=== PATIENT | male | born 1960 | race Caucasian/White ===

== ENCOUNTER 2018-07-12 06:12 | Observation (INO) | payer BC ==
[2018-07-12 06:13] VITALS: BMI 24.3
--- NOTE | 2018-07-12 07:26 | ED PDOC ---
Arrival/HPI - General Chief Complaint: Abdominal Pain Time Seen by Provider: 07/12/18 07:06 - History of Present Illness Narrative History of Present Illness (Text): 07/12/18 07:23 57 m with no significant pmhx presents to the ED with acute epigastric pain and vomiting since 2am last night. Patient reports the pain feels like a pressure, states he felt a similiar episode approximately 2 weeks ago which resolved spontaneously. Patient states he vomiting once since this episode of pain, states the pain radiates to the RUQ and feels some right flank pain. Patient also reports he feels short of breath but denies any recent coughing, no fevers, no recent prolonged immobilization. Patient denies dysuria, no hematuria, no bloody stools, no diarrhea. PCP: Dr. kaye Time/Duration: 4-6 hours (last night) Symptom Onset: Gradual Activities at Onset: Light Context: Home Past Medical History - Past History Past History: No Previous - Infectious Disease Hx of Infectious Diseases: None - Past Medical History Past Medical History: No Previous - Psychiatric Hx Depression: No Hx Emotional Abuse: No Hx Physical Abuse: No Hx Substance Use: No - Surgical History Hx Inguinal Hernia Repair: Yes - Anesthesia Hx Anesthesia: Yes Hx Anesthesia Reactions: No Hx Malignant Hyperthermia: No - Suicidal Assessment Feels Threatened In Home Enviroment: No Family/Social History Family/Social History: No Known Family HX Smoking Status: Never Smoked Hx Alcohol Use: No Hx Substance Use: No Allergies/Home Meds Allergies/Adverse Reactions: Allergies codeine Adverse Reaction (Verified 07/12/18 06:26) RASH Home Medications: Home Meds Medication Instructions Recorded Confirmed RX: No Known Home Med 07/12/18 07/12/18 Review of Systems - Physician Review All systems were reviewed & negative as marked: Yes - Review of Systems Constitutional: absent: Fevers Respiratory: absent: Cough Gastrointestinal: Abdominal Pain, Vomiting. absent: Diarrhea Genitourinary Male: absent: Dysuria, Hematuria Physical Exam - Physical Exam Narrative Physical Exam (Text): 07/12/18 07:27 Gen: VS reviewed, alert, well developed, well nourished, nontoxic, mild distress Eye: EOMI, PERRL Neck: no JVD, supple, no adenopathy CV: regular rate, regular rhythm, no rubs,no murmur, S1, S2 Pulm: no distress, clear to auscultation, no wheeze, no rhonchi, breath sounds equal, no rales, tachypneic Abd: soft, nontender, no guarding, no rebound, no rigidity Ext: no edema Skin: good color, no rash, no cyanosis Psych: responds appropriately to questions, normal affect Neuro: oriented x3, CN2-12 intact grossly, motor intact, sensation intact 07/12/18 07:29 Vital Signs Reviewed: Yes Vital Signs Temp Pulse Resp BP Pulse Ox 07/12/18 06:21 97.6 F 77 17 170/80 H 100 hypertensive Temperature: Afebrile Pulse: Regular Medical Decision Making ED Course and Treatment: 07/12/18 07:27 57 healthy male with no known cardiac risk factors presents with acute epigastric pain, RUQ pain, chest pain and vomiting. Patient does not have any reproducible abdominal tenderness. Will initiate a cardiac and hepatobiliary workup. If US is negative, will consider other etiology of pain. 07/12/18 09:[address] Urena who states Dr. Aldridge is covering his admissions. 07/12/18 11:[address] aldridge, patient to be admitted for epigastric pain with gallstones, rule out cholecystitis. dr. aldridge has requested consults to dr. weems for surgery and dr. moran for GI. call has been placed to surgical brace maker for consult but they are currently unavailable as they are scrubbed in. call placed to dr. weems. - RAD Interpretation Narrative RAD Interpretations (Text): 07/12/18 11:20 Procedure: Ultrasound Time:07/12/2018 11:10:28 Dictator: Sherice Siddiqi MD Impression: Gallbladder wall thickening/pericholecystic edema. Gallstones. Negative sonographic Gardner's sign as assessed by the launch manager. Correlate clinically for possibility of cholecystitis. Echogenic liver may be seen in setting of hepatic parenchymal disease or fatty infiltration. Radiology Orders: 07/12/18 07:23 GALLBLADDER & PANCREAS [US] Stat Histology Tech: Radiologist - EKG Interpretation EKG Interpretation (Text): 07/12/18 06:20 nsr at 71 bpm, nml qrs, nml axis, no acute sttw abn Interpreted by ED Physician: Yes - Medication Orders Current Medication Orders: Ondansetron HCl (Zofran Inj) 4 mg IVP STAT STA Stop: 07/12/18 07:24 Disposition/Present on Arrival - Present on Arrival Any Indicators Present on Arrival: No History of DVT/PE: No History of Uncontrolled Diabetes: No Urinary Catheter: No History of Decub. Ulcer: No History Surgical Site Infection Following: None - Disposition Have Diagnosis and Disposition been Completed?: Yes Diagnosis: Gallstones Disposition: HOSPITALIZED Disposition Time: 11:32 Patient Plan: Admission Patient Problems: Current Active Problems Problem Status Onset Cholecystitis Acute Cholelithiasis Acute Condition: STABLE
[2018-07-12 07:51] LABS: PH,URINE 8.5 (4.7-8.0); URINE BILIRUBIN NEGATIVE (NEGATIVE); URINE BLOOD NEGATIVE (NEGATIVE); URINE GLUCOSE (UA) NEGATIVE (NEGATIVE); URINE LEUKOCYTE ESTERASE NEGATIVE Leu/uL (NEGATIVE); URINE PROTEIN NEGATIVE mg/dL (<30 mg/dL); URINE UROBILINOGEN 0.2 E.U./dL (<1 E.U./dL)
[2018-07-12 07:53] LABS: BASO # 0.02 K/mm3 (0.0-2.0); BASO % 0.2 % (0.0-3.0); EOS % 0.1 % (1.5-5.0); GRAN # 8.32 (1.4-6.5); GRAN % 82.5 % (50.0-68.0); HEMOGLOBIN 14.5 g/dL (14.0-18.0); LYMPH # 1.3 (1.2-3.4); LYMPH % 13.3 % (22.0-35.0); MEAN CORPUSCULAR HEMOGLOBIN 29.4 pg (25.0-35.0); MEAN CORPUSCULAR HGB CONC 33.4 g/dl (31.0-37.0); MEAN PLATELET VOLUME 9.7 fl (7.0-11.0); MONO # 0.4 (0.1-0.6); MONO % 3.9 % (1.0-6.0); RBC 4.93 10^6/uL (3.5-6.1); RED CELL DISTRIBUTION WIDTH 13.2 % (11.5-14.5); WHITE BLOOD COUNT 10.1 10^3/uL (4.5-11.0)
[2018-07-12 07:54] LABS: URINE APPEARANCE CLEAR (CLEAR); URINE COLOR LIGHT YELLOW (YELLOW)
[2018-07-12 08:51] LABS: INR 1.06; PARTIAL THROMBOPLASTIN TIME 30.5 Seconds (25.1-36.5); PROTHROMBIN TIME 12.2 SECONDS (9.4-12.5)
[2018-07-12 08:52] LABS: D DIMER < 200 ng/mlDDU (0-243)
[2018-07-12 09:12] LABS: ALB/GLOB RATIO 1.2 (1.1-1.8); ALBUMIN 4.5 g/dL (3.0-4.8); ALT/SGPT 38 U/L (7-56); AST/SGOT 35 U/L (17-59); BLOOD UREA NITROGEN 12 mg/dL (7-21); CALCIUM 9.4 mg/dL (8.4-10.5); GFR NON-AFRICAN AMERICAN > 60; HDL CHOLESTEROL 62 mg/dL (29-60); LIPASE 218 U/L (23-300)
[2018-07-12 09:23] LABS: LDL CHOLESTEROL 93 mg/dL (0-129)
[2018-07-12 09:26] LABS: TROPONIN I < 0.01 ng/mL
--- NOTE | 2018-07-12 11:14 | US ---
Date of service: 07/12/2018 HISTORY: pain, ?gallstones COMPARISON: None available. TECHNIQUE: Sonographic evaluation of the right upper quadrant of the abdomen. FINDINGS: LIVER: Measures 18.9 cm in length. Echogenic liver may be seen in setting of hepatic parenchymal disease or fatty infiltration. No focal hepatic mass identified. The main portal vein appears patent with normal directional flow. No intrahepatic bile duct dilatation. GALLBLADDER: Gallstones. Mild gallbladder wall thickening measuring approximately 5 mm in diameter/pericholecystic fluid. Negative sonographic Gardner's sign as assessed by the project systems engineer. COMMON BILE DUCT: Measures 6 mm. PANCREAS: Not well-visualized. RIGHT KIDNEY: Measures approximately 10.4 x 4.7 x 4.8 cm. No obstructing calculus or hydronephrosis identified. AORTA: Limited visualization appears grossly unremarkable. IVC: Limited visualization appears grossly unremarkable. OTHER FINDINGS: None . IMPRESSION: Gallbladder wall thickening/pericholecystic edema. Gallstones. Negative sonographic Gardner's sign as assessed by the project systems engineer. Correlate clinically for possibility of cholecystitis. Echogenic liver may be seen in setting of hepatic parenchymal disease or fatty infiltration.
[2018-07-12] MEDS ORDERED: HYDROmorphone 1 mg/ml ISec IVP PRN ×2 (11:28→15:04)
[2018-07-12] MEDS ORDERED: Dextrose 5%/0.45% NS 1,000 ML IV SCH (11:30)
[2018-07-12] MEDS ORDERED: Sodium Chloride 0.9% 1,000 ML IV SCH (11:45)
[2018-07-12] MEDS: cefTRIAXone 1 gm 1 GM/100 ML BAG IVPB SCH (11:54)
--- NOTE | 2018-07-12 14:42 | CARD ---
APPROVED REPORT Date of service: 07/12/2018 EKG Measurement Heart [id number] <Conclusion> Normal sinus rhythm Normal ECG
[2018-07-12] MEDS ORDERED: Influenza Vaccine 60 mcg/0.5 mL SYR (4YR UP) IM ONE (14:49)
[2018-07-12] MEDS ORDERED: Pneumococcal 23-Valent Vaccine IM ONE (14:49)
[2018-07-12] MEDS: metroNIDAZOLE IV 500 mg/100 ml 500 MG/100 ML BAG IVPB SCH ×2 (15:27→21:54)
--- NOTE | 2018-07-12 20:15 | CP.PCM.CON ---
<Magdi Perdomo - Last Filed: 07/12/18 20:15> History of Present Illness - History of Present Illness History of Present Illness: Surgery Consult note- Dr. Benito Reason for consult: Cholecystitis 57M w/ no significant PMHx [place] [facility] [place]/ nausea and upper abdominal pain that started this morning. His last meal was [place] take out last night. Admits to associated nausea and 1 episode of non-bloody, non-bilious vomiting. Had pain similar to this in the past about 2 weeks ago. Surgery was consulted for evaluation of possible acute cholecystitis. During encounter patient is asy mptomatic, with no abdominal pain resting comfortably. Patient states pain is worse with deep breaths. ED workup: US shows cholelithiasis 12 point ROS conducted, negative otherwise stated above PMH: Denies PSH: b/l inguinal hernia repair (about 10 years ago, does not remember), circumcision in adulthood ALL: NKDA SocialHx: Denies tobacco, etoh, recreational drug use FH: non-contributory Review of Systems - Review of Systems All systems: reviewed and no additional remarkable complaints except - Constitutional Constitutional: As Per HPI Past Patient History - Infectious Disease Hx of Infectious Diseases: None - Past Social History Smoking Status: Never Smoked - CARDIAC Hx Cardiac Disorders: No - PULMONARY Hx Respiratory Disorders: No - NEUROLOGICAL Hx Neurological Disorder: No - HEENT Hx HEENT Problems: No - RENAL Hx Chronic Kidney Disease: No - ENDOCRINE/METABOLIC Hx Endocrine Disorders: No (pt's mother was diabetic) - HEMATOLOGICAL/ONCOLOGICAL Hx Blood Disorders: No - INTEGUMENTARY Hx Dermatological Problems: No - MUSCULOSKELETAL/RHEUMATOLOGICAL Hx Musculoskeletal Disorders: No Hx Falls: No - GASTROINTESTINAL Hx Gastrointestinal Disorders: No - GENITOURINARY/GYNECOLOGICAL Hx Genitourinary Disorders: No - PSYCHIATRIC Hx Psychophysiologic Disorder: No Hx Substance Use: No - SURGICAL HISTORY Hx Surgeries: Yes (circumcision) - ANESTHESIA Hx Anesthesia: Yes Hx Anesthesia Reactions: No Hx Malignant Hyperthermia: No Meds Allergies/Adverse Reactions: Allergies Allergy/AdvReac Type Severity Reaction Status Date / Time codeine AdvReac RASH Verified 07/12/18 06:26 - Medications Medications: Current Medications Hydromorphone HCl (Dilaudid) 2 mg IVP Q4H PRN PRN Reason: Pain, moderate (4-7) Last Admin: 07/12/18 17:19 Dose: 2 mg Dextrose/Sodium Chloride (Dextrose 5%/0.45% Ns 1000 Ml) 1,000 mls @ 100 mls/hr IV .Q10H YONI Last Admin: 07/12/18 11:56 Dose: 100 mls/hr Metronidazole (Flagyl) 500 mg in 100 mls @ 100 mls/hr IVPB Q8 YONI; Protocol Last Admin: 07/12/18 15:27 Dose: 100 mls/hr Ceftriaxone Sodium (Rocephin 1 Gram Ivpb) 1 gm in 100 mls @ 100 mls/hr IVPB DAILY YONI; Protocol Last Admin: 07/12/18 11:54 Dose: 100 mls/hr Sodium Chloride (Sodium Chloride 0.9%) 1,000 mls @ 150 mls/hr IV .Q6H40M YONI Ondansetron HCl (Zofran Inj) 4 mg IVP Q6H PRN PRN Reason: Nausea/Vomiting Last Admin: 07/12/18 15:28 Dose: 4 mg Pantoprazole Sodium (Protonix Inj) 40 mg IVP DAILY [facility] Last Admin: 07/12/18 11:55 Dose: 40 mg Physical Exam - Constitutional Appears: Non-toxic, No Acute Distress - Head Exam Head Exam: ATRAUMATIC - Eye Exam Eye Exam: EOMI. absent: Scleral icterus - ENT Exam ENT Exam: Mucous Membranes Moist - Respiratory Exam Respiratory Exam: NORMAL BREATHING PATTERN. absent: Accessory Muscle Use, Respiratory Distress - Cardiovascular Exam Cardiovascular Exam: +S1, +S2. absent: Bradycardia, Tachycardia - GI/Abdominal Exam GI & Abdominal Exam: Distended (distended, states normal size abdomen), Soft, T enderness (tender to deep palpation in RUQ. Negative murphys). absent: Firm, Guarding, Hernia - Neurological Exam Neurological exam: Alert, Oriented x3 - Psychiatric Exam Psychiatric exam: Normal Affect - Skin Skin Exam: Intact, Warm Results - Vital Signs Recent Vital Signs: Last Vital Signs Temp 98.0 F 07/12/18 16:58 Pulse 76 07/12/18 16:58 Resp 20 07/12/18 16:58 BP 148/86 07/12/18 16:58 Pulse Ox 96 07/12/18 16:58 - Labs Result Diagrams: 07/12/18 07:30 07/12/18 09:00 Labs: Laboratory Results - last 24 hr 12/15/18 12/15/18 12/15/18 07:30 07:30 07:30 WBC 10.1 RBC 4.93 Hgb 14.5 Hct 43.4 MCV 88.0 MCH 29.4 MCHC 33.4 RDW 13.2 Plt Count 439 MPV 9.7 Gran % 82.5 H Lymph % (Auto) 13.3 L [place] % (Auto) 3.9 Eos % (Auto) 0.1 L Baso % (Auto) 0.2 Gran # 8.32 H Lymph # (Auto) 1.3 [place] # (Auto) 0.4 Eos # (Auto) 0.0 Baso # (Auto) 0.02 PT INR APTT D-Dimer, Quantitative Sodium Potassium Chloride Carbon Dioxide Anion Gap BUN Creatinine Est GFR ( Amer) Est GFR (Non-Af Amer) Random Glucose Calcium Total Bilirubin AST ALT Alkaline Phosphatase Troponin I Total Protein Albumin Globulin Albumin/Globulin Ratio Triglycerides Cholesterol LDL Cholesterol Direct HDL Cholesterol Lipase TSH 3rd Generation 1.02 Urine Color Light yellow Urine Appearance Clear Urine pH 8.5 Ur Specific Edison 1.020 Urine Protein Negative Urine Glucose (UA) Negative Urine Ketones 15 H Urine Blood Negative Urine Nitrate Negative Urine Bilirubin Negative Urine Urobilinogen 0.2 Ur Leukocyte Esterase Negative 07/12/18 07/12/18 08:30 09:00 WBC RBC Hgb Hct MCV MCH MCHC RDW Plt Count MPV Gran % Lymph % (Auto) [place] % (Auto) Eos % (Auto) Baso % (Auto) Gran # Lymph # (Auto) [place] # (Auto) Eos # (Auto) Baso # (Auto) PT 12.2 INR 1.06 APTT 30.5 D-Dimer, Quantitative < 200 Sodium 138 Potassium 3.7 Chloride 105 Carbon Dioxide 20 L Anion Gap 17 BUN 12 Creatinine 0.7 L Est GFR ( Amer) > 60 Est GFR (Non-Af Amer) > 60 Random Glucose 142 H Calcium 9.4 Total Bilirubin 0.5 AST 35 ALT 38 Alkaline Phosphatase 119 Troponin I < 0.01 Total Protein 8.3 Albumin 4.5 Globulin 3.8 Albumin/Globulin Ratio 1.2 Triglycerides 67 Cholesterol 173 LDL Cholesterol Direct 93 HDL Cholesterol 62 H Lipase 218 TSH 3rd Generation Urine Color Urine Appearance Urine pH Ur Specific Edison Urine Protein Urine Glucose (UA) Urine Ketones Urine Blood Urine Nitrate Urine Bilirubin Urine Urobilinogen Ur Leukocyte Esterase Assessment & Plan - Assessment and Plan (Free Text) Assessment: 57M w/ symptomatic cholelithasis vs acute cholecystitis Plan: - NPO - HIDA scan; - CLD post HIDA - pain control PRN - anti-emetic PRN - repeat AM labs - will continue to follow - discussed w/ Dr. Benito surgical attending PGY2 <Lance Benito - Last Filed: 07/13/18 11:42> Meds - Medications Medications: Current Medications Hydromorphone HCl (Dilaudid) 2 mg IVP Q4H PRN PRN Reason: Pain, moderate (4-7) Last Admin: 07/12/18 17:19 Dose: 2 mg Dextrose/Sodium Chloride (Dextrose 5%/0.45% Ns 1000 Ml) 1,000 mls @ 100 mls/hr IV .Q10H YONI Last Admin: 07/12/18 11:56 Dose: 100 mls/hr Metronidazole (Flagyl) 500 mg in 100 mls @ 100 mls/hr IVPB Q8 YONI; Protocol Last Admin: 07/13/18 06:29 Dose: 100 mls/hr Ceftriaxone Sodium (Rocephin 1 Gram Ivpb) 1 gm in 100 mls @ 100 mls/hr IVPB DAILY YONI; Protocol Last Admin: 07/13/18 10:24 Dose: 100 mls/hr Sodium Chloride (Sodium Chloride 0.9%) 1,000 mls @ 150 mls/hr IV .Q6H40M YONI Ondansetron HCl (Zofran Inj) 4 mg IVP Q6H PRN PRN Reason: Nausea/Vomiting Last Admin: 07/12/18 15:28 Dose: 4 mg Pantoprazole Sodium (Protonix Inj) 40 mg IVP DAILY YONI Last Admin: 07/13/18 10:23 Dose: 40 mg Results - Vital Signs Recent Vital Signs: Last Vital Signs Temp 98.2 F 07/13/18 08:12 Pulse 78 07/13/18 10:23 Resp 18 07/13/18 08:12 BP 159/79 H 07/13/18 10:23 Pulse Ox 99 07/13/18 08:12 - Labs Result Diagrams: 07/13/18 06:30 07/13/18 06:30 Labs: Laboratory Results - last 24 hr 07/13/18 07/13/18 06:30 06:30 WBC 12.9 H D RBC 4.65 Hgb 13.5 L Hct 41.1 L MCV 88.4 MCH 29.0 MCHC 32.8 RDW 13.6 Plt Count 391 MPV 9.4 Gran % 66.9 Lymph % (Auto) 18.9 L [place] % (Auto) 13.4 H Eos % (Auto) 0.6 L Baso % (Auto) 0.2 Gran # 8.62 H Lymph # (Auto) 2.4 [place] # (Auto) 1.7 H Eos # (Auto) 0.1 Baso # (Auto) 0.03 Sodium 139 Potassium 4.1 Chloride 103 Carbon Dioxide 27 Anion Gap 13 BUN 10 Creatinine 0.9 Est GFR ( Amer) > 60 Est GFR (Non-Af Amer) > 60 Random Glucose 97 Calcium 9.1 Total Bilirubin 0.6 AST 38 ALT 37 Alkaline Phosphatase 95 Total Protein 7.4 Albumin 3.9 Globulin 3.6 Albumin/Globulin Ratio 1.1 Assessment & Plan - Assessment and Plan (Free Text) Plan: This consult done under my direct supervision Inessa Benito MD FACS
--- NOTE | 2018-07-13 03:43 | HP ---
DATE OF EXAM: HISTORY OF PRESENT ILLNESS: The patient is a 57-year-old state he woke up this morning started right upper quadrant pain, feels nauseous, denies any fever, he stated around 10:30 has some food having chicken where he brought from outside and around 2 o'clock, he woke up having epigastric discomfort, felt nauseous, felt pressure. He had similar episode 2 weeks ago, but it resolves spontaneously. Denies any fever or chills. No history of hemoptysis. No hematemesis, history of fever or chills. PAST MEDICAL HISTORY: He has no significant past medical history. MEDICATIONS: Does not take any medication at home. ALLERGIES: HE IS ALLERGIC TO CODEINE. SOCIAL HISTORY: Denies smoking or drinking, did not drink heavy last night either. PHYSICAL EXAMINATION: GENERAL: He is awake and alert, able to communicate. VITAL SIGNS: He is afebrile. Pulse 76, respirations 20, blood pressure 148/86. LUNGS: Bilateral fair airflow. No rhonchi or crackle. HEART: S1 and S2 audible. ABDOMEN: Soft, has epigastric, right upper quadrant discomfort. No guarding or reproducible tenderness. NEUROLOGIC: He is awake, alert, oriented and communicative. LABORATORY EXAM: WBC 10.1, hemoglobin 14, hematocrit 43, and platelets 439. PT 12.2. INR 1.06. Chemistry; sodium 138, potassium 3.7, chloride 105, CO2 of 20, BUN 12, creatinine 0.7, blood sugar of 142. Urinalysis is positive for ketone. He had gallbladder ultrasound done that shows cholelithiasis, thickening of the gallbladder wall, questionable pericholecystic edema. ASSESSMENT: 1. Gastritis. 2. Acute cholecystitis. 3. History of gastritis. PLAN: The patient is currently n.p.o. We will give him IV fluids, analgesic as needed. He has been started on metronidazole, Protonix and Rocephin and give him Zofran as needed. HIDA scan has been requested, we will reevaluate in the a.m. Followup CBC and CMP in the a.m. GI consult by Dr. Singer. Surgical consult by Dr. Bolaños, has been requested. We will followup CBC and CMP in a.m. and LFT's in a.m. and make further recommendation after reevaluation in the a.m. Maricarmen Aldridge MD [facility] # [phone]
[2018-07-13] MEDS: metroNIDAZOLE IV 500 mg/100 ml 500 MG/100 ML BAG IVPB SCH ×2 (06:29→13:16)
[2018-07-13 07:07] LABS: BASO # 0.03 K/mm3 (0.0-2.0); BASO % 0.2 % (0.0-3.0); EOS # 0.1 (0.0-0.7); EOS % 0.6 % (1.5-5.0); GRAN # 8.62 (1.4-6.5); GRAN % 66.9 % (50.0-68.0); HEMOGLOBIN 13.5 g/dL (14.0-18.0); LYMPH # 2.4 (1.2-3.4); LYMPH % 18.9 % (22.0-35.0); MEAN CELL VOLUME 88.4 fl (80.0-105.0); MEAN CORPUSCULAR HGB CONC 32.8 g/dl (31.0-37.0); MEAN PLATELET VOLUME 9.4 fl (7.0-11.0); MONO # 1.7 (0.1-0.6); MONO % 13.4 % (1.0-6.0); RBC 4.65 10^6/uL (3.5-6.1); RED CELL DISTRIBUTION WIDTH 13.6 % (11.5-14.5); WHITE BLOOD COUNT 12.9 10^3/uL (4.5-11.0)
[2018-07-13 07:29] LABS: ALB/GLOB RATIO 1.1 (1.1-1.8); ALBUMIN 3.9 g/dL (3.0-4.8); ALT/SGPT 37 U/L (7-56); AST/SGOT 38 U/L (17-59); BLOOD UREA NITROGEN 10 mg/dL (7-21); CALCIUM 9.1 mg/dL (8.4-10.5); GFR NON-AFRICAN AMERICAN > 60
[2018-07-13 08:12] VITALS: RESP 18; TEMP 98.2; O2SAT 99
--- NOTE | 2018-07-13 09:01 | CP.PCM.PCO ---
Physician Communication Note - Physician Communication Note Physician Communication Note: HIDA Non-Viz/Frank Ab-OR ? Saturday
--- NOTE | 2018-07-13 09:33 | CP.PCM.PN ---
<Magdi Perdomo - Last Filed: 07/13/18 09:28> Subjective - Date & Time of Evaluation Date of Evaluation: 07/13/18 Time of Evaluation: 09:28 - Subjective Subjective: Surgery Progress note- Dr. Benito Patient seen and examined at bedside. Pain significantly improved from yesterday. HIDA performed yesterday, GB not visualized. Denies fevers, chills, chest pain, shortness of breath Objective - Vital Signs/Intake and Output Vital Signs (last 24 hours): Temp Pulse Resp BP Pulse Ox 98.2 F 73 18 147/79 99 07/13/18 08:12 07/13/18 08:12 07/13/18 08:12 07/13/18 08:12 07/13/18 08:12 Intake and Output: 07/13/18 07/13/18 06:59 18:59 Intake Total 1400 Balance 1400 - Medications Medications: Current Medications Hydromorphone HCl (Dilaudid) 2 mg IVP Q4H PRN PRN Reason: Pain, moderate (4-7) Last Admin: 07/12/18 17:19 Dose: 2 mg Dextrose/Sodium Chloride (Dextrose 5%/0.45% Ns 1000 Ml) 1,000 mls @ 100 mls/hr IV .Q10H YONI Last Admin: 07/12/18 11:56 Dose: 100 mls/hr Metronidazole (Flagyl) 500 mg in 100 mls @ 100 mls/hr IVPB Q8 YONI; Protocol Last Admin: 07/13/18 06:29 Dose: 100 mls/hr Ceftriaxone Sodium (Rocephin 1 Gram Ivpb) 1 gm in 100 mls @ 100 mls/hr IVPB DAILY YONI; Protocol Last Admin: 07/12/18 11:54 Dose: 100 mls/hr Sodium Chloride (Sodium Chloride 0.9%) 1,000 mls @ 150 mls/hr IV .Q6H40M YONI Ondansetron HCl (Zofran Inj) 4 mg IVP Q6H PRN PRN Reason: Nausea/Vomiting Last Admin: 07/12/18 15:28 Dose: 4 mg Pantoprazole Sodium (Protonix Inj) 40 mg IVP DAILY YONI Last Admin: 07/12/18 11:55 Dose: 40 mg - Labs Labs: 07/13/18 06:30 07/13/18 06:30 PT 12.2 SECONDS (9.4-12.5) 07/12/18 08:30 INR 1.06 07/12/18 08:30 APTT 30.5 Seconds (25.1-36.5) 07/12/18 08:30 - Constitutional Appears: Non-toxic, No Acute Distress - Head Exam Head Exam: ATRAUMATIC - Eye Exam Eye Exam: EOMI. absent: Scleral icterus - ENT Exam ENT Exam: Mucous Membranes Moist - Respiratory Exam Respiratory Exam: NORMAL BREATHING PATTERN. absent: Accessory Muscle Use, Respiratory Distress - Cardiovascular Exam Cardiovascular Exam: +S1, +S2. absent: Bradycardia, Tachycardia - GI/Abdominal Exam GI & Abdominal Exam: Soft. absent: Distended, Firm, Guarding, Rigid, Tenderness - Neurological Exam Neurological Exam: Alert, Awake, Oriented x3 - Psychiatric Exam Psychiatric exam: Normal Affect - Skin Skin Exam: Intact, Warm Assessment and Plan - Assessment and Plan (Free Text) Assessment: 57M w/ acute cholecystitis Plan: - pain control PRN - anti-emetic PRN - HIDA positive; will discuss potential OR for Saturday - can start on Clear Liquid Diet - will discuss surgical options and plan of care with patient - further recs per Dr. Thong Perdomo PGY2 <Lance Benito - Last Filed: 07/13/18 11:38> Objective - Vital Signs/Intake and Output Vital Signs (last 24 hours): Temp Pulse Resp BP Pulse Ox 98.2 F 78 18 159/79 H 99 07/13/18 08:12 07/13/18 10:23 07/13/18 08:12 07/13/18 10:23 07/13/18 08:12 Intake and Output: 07/13/18 07/13/18 06:59 18:59 Intake Total 1400 Balance 1400 - Medications Medications: Current Medications Hydromorphone HCl (Dilaudid) 2 mg IVP Q4H PRN PRN Reason: Pain, moderate (4-7) Last Admin: 07/12/18 17:19 Dose: 2 mg Dextrose/Sodium Chloride (Dextrose 5%/0.45% Ns 1000 Ml) 1,000 mls @ 100 mls/hr IV .Q10H YONI Last Admin: 07/12/18 11:56 Dose: 100 mls/hr Metronidazole (Flagyl) 500 mg in 100 mls @ 100 mls/hr IVPB Q8 YONI; Protocol Last Admin: 07/13/18 06:29 Dose: 100 mls/hr Ceftriaxone Sodium (Rocephin 1 Gram Ivpb) 1 gm in 100 mls @ 100 mls/hr IVPB DAILY [facility]; Protocol Last Admin: 07/13/18 10:24 Dose: 100 mls/hr Sodium Chloride (Sodium Chloride 0.9%) 1,000 mls @ 150 mls/hr IV .Q6H40M YONI Ondansetron HCl (Zofran Inj) 4 mg IVP Q6H PRN PRN Reason: Nausea/Vomiting Last Admin: 07/12/18 15:28 Dose: 4 mg Pantoprazole Sodium (Protonix Inj) 40 mg IVP DAILY [facility] Last Admin: 07/13/18 10:23 Dose: 40 mg - Labs Labs: 07/13/18 06:30 07/13/18 06:30 PT 12.2 SECONDS (9.4-12.5) 07/12/18 08:30 INR 1.06 07/12/18 08:30 APTT 30.5 Seconds (25.1-36.5) 07/12/18 08:30 Assessment and Plan - Assessment and Plan (Free Text) Plan: Plan change as HIDA is non-viz and WBC kiran to 12.9 R Thong CABEZAS FACS
[2018-07-13] MEDS: cefTRIAXone 1 gm 1 GM/100 ML BAG IVPB SCH (10:24)
[2018-07-13 10:31] VITALS: BP 159/79
--- NOTE | 2018-07-13 12:09 | CON ---
DATE OF CONSULTATION: 07/13/2018 REQUESTING PHYSICIAN: Maricarmen Aldridge MD REASON FOR CONSULTATION: I have been asked to see this 57-year-old male admitted to the hospital with epigastric and right upper quadrant pain after eating chicken. The patient had a similar episode 2 weeks ago. The abdominal pain was associated with nausea. He currently denies any abdominal pain now. Ultrasound of the abdomen revealed gallstones, mild gallbladder wall thickening, and pericholecystic fluid. Hepatobiliary scan shows nonvisualization of the gallbladder. PAST MEDICAL HISTORY: Unremarkable. FAMILY HISTORY: Noncontributory. SOCIAL HISTORY: Denies cigarette smoking or alcohol use. REVIEW OF SYSTEMS: A 14-point review of systems is notable for epigastric and right upper quadrant pain and nausea. PHYSICAL EXAMINATION: GENERAL: Well-developed male lying in bed in no acute distress. VITAL SIGNS: Temperature of 98.2, blood pressure of 147/79, heart rate of 73. HEENT: Reveal sclerae to be white. Conjunctivae pink. NECK: Supple. CHEST: Lungs are clear. HEART: Regular rate and rhythm. ABDOMEN: Soft, nontender. No mass. EXTREMITIES: No edema. LABORATORY DATA: White blood cell count 12.9, hemoglobin 13.5. Chemistries reveal normal electrolytes. Normal AST, ALT and alk phos. IMPRESSION: Acute cholecystitis. RECOMMENDATIONS: 1. The patient will need cholecystectomy. 2. Continue IV ceftriaxone. Iker Singer MD
[2018-07-13 17:20] VITALS: PULSE 80
--- NOTE | 2018-07-14 08:43 | DS ---
HISTORY OF PRESENT ILLNESS: The patient is 57 years old who was admitted yesterday with raging epigastric and right upper quadrant discomfort. He was kept n.p.o., was given IV fluid and IV antibiotic, responded very well. This morning when seen, he is comfortable, wants to go home, wants to advance his diet. The patient was evaluated by surgeon and was empirically placed for OR on Saturday for laparoscopic cholecystectomy. The patient states he feels well, he wanted to do it later on holidays. PHYSICAL EXAMINATION: GENERAL: Today, he is awake, alert, oriented, communicative. VITAL SIGNS: He is afebrile, pulse 80, respirations 18, blood pressure 159/79. LUNGS: Bilateral good airflow. No rhonchi or crackles. HEART: S1 and S2 audible. ABDOMEN: Soft and nontender. No rebound. No guarding. NEUROLOGIC: The patient is awake, alert, oriented, able to communicate. LABORATORY DATA: WBC 12.9, hemoglobin 13.5, hematocrit 41, platelet 391. Chemistry; sodium 139, potassium 4.1, chloride 103, CO2 of 27, BUN 10, creatinine 0.9, blood sugar 197. ASSESSMENT: 1. Acute cholecystitis. 2. Non-visualized HIDA scan. 3. Hypertension. 4. Cholelithiasis. PLAN: The patient was advised to be maintained on IV fluid, IV antibiotic and we will advance diet in the morning. The patient's came to visit later on after I saw the patient, she did not want stay anymore, since he is doing well, he wants to eat, he signed against medical advice. If the rib pain comes back, he will come back. Maricarmen Aldridge MD
--- NOTE | 2018-07-14 10:09 | NM ---
Date of service: 07/12/2018 PROCEDURE: Nuclear Medicine Hepatobiliary Scan HISTORY: eval cystic duct COMPARISON: Limited abdomen ultrasound 07/12/2018. TECHNIQUE: mCi of technetium 99m Mebrofenin was administered intravenously. Planar images of the abdomen were obtained at 5 min intervals to 60 mins. Delayed images were also obtained. FINDINGS: LIVER: Timely and homogenous uptake. COMMON BILE DUCT: identified at 10-15 mins. GALLBLADDER: Not identified up to 4 hr post isotope administration. SMALL BOWEL: Identified at 15 mins. IMPRESSION: 1. The pattern suggests obstruction of the cystic duct and accordingly therefore, cholecystitis. 2. No nuclear evidence of common bile duct obstruction.
== END 2018-07-13 16:00 | disposition left against medical advice (07) ==
LOC: ED 06:12 → ERH 11:33 → INTOOBSV 11:33 → ERH 12:06 → 3RSO 13:48
PROVIDERS: ADMIT Internal Medicine; ATTEND Internal Medicine
DX: K80.00 Calculus of gallbladder with acute cholecystitis without obstruction (principal); I10 Essential (primary) hypertension; K29.70 Gastritis, unspecified, without bleeding; Z83.3 Family history of diabetes mellitus; Z88.5 Allergy status to narcotic agent
CPT/HCPCS: 36415; 76705; 78227; 80053; 80061; 81003; 83690; 84443; 84484; 85025; 85378; 85610; 85730; 93005; 96361; 96365; 96366; 96367; 96375; 96376; 99285; A9537; C9113; G0378; J0696; J1170; J2405; J7042

== ENCOUNTER 2018-07-13 23:12 | Inpatient (IN) | payer BC ==
[2018-07-13 23:12] VITALS: BMI 24.3
--- NOTE | 2018-07-13 23:49 | ED PDOC ---
Arrival/HPI - General Time Seen by Provider: 07/13/18 23:30 Historian: Patient - History of Present Illness Narrative History of Present Illness (Text): 07/13/18 23:49 Gaurav Santiago is a 57 year old male who presents to the Emergency department complaining of upper abdominal pain and nausea. Patient was seen in the Emergency department on 07/12/2018 for similar complaints and admitted to the hospital for cholecystitis/cholelithasis. Patient was scheduled for surgery this week however he signed out against medical advice earlier today. Patient states upper abdominal pain returned while at home and patient returned to the hospital for readmission. Patient denies any abdominal pain currently but does complain of some nausea. Patient denies any fever, chills, chest pain, shortness of breath, diarrhea, urinary symptoms, back pain, neck pain, headache, dizziness, or any other complaints. PMD: Dr. Jiménez Symptom Onset: Gradual Symptom Course: Unchanged Activities at Onset: Light Context: Home Past Medical History - Provider Review Nursing Documentation Reviewed: Yes - Past History Past History: No Previous - Infectious Disease Hx of Infectious Diseases: None - Past Medical History Past Medical History: No Previous - Cardiac Hx Cardiac Disorders: No - Pulmonary Hx Respiratory Disorders: No - Neurological Hx Neurological Disorder: No - HEENT Hx HEENT Disorder: No - Renal Hx Renal Disorder: No - Endocrine/Metabolic Hx Endocrine Disorders: No (pt's mother was diabetic) - Hematological/Oncological Hx Blood Disorders: No - Integumentary Hx Dermatological Disorder: No - Musculoskeletal/Rheumatological Hx Musculoskeletal Disorders: No Hx Falls: No - Gastrointestinal Hx Gastrointestinal Disorders: No - Genitourinary/Gynecological Hx Genitourinary Disorders: No - Psychiatric Hx Psychophysiologic Disorder: No Hx Substance Use: No - Surgical History Hx Inguinal Hernia Repair: Yes (b/l done at the same time about 10 yrs ago) - Anesthesia Hx Anesthesia: Yes Hx Anesthesia Reactions: No Hx Malignant Hyperthermia: No - Suicidal Assessment Feels Threatened In Home Enviroment: No Family/Social History - Physician Review Nursing Documentation Reviewed: Yes Family/Social History: Unknown Family HX Smoking Status: Never Smoked Hx Alcohol Use: No Hx Substance Use: No Allergies/Home Meds Allergies/Adverse Reactions: Allergies codeine Adverse Reaction (Verified 07/12/18 06:26) RASH Home Medications: Home Meds Medication Instructions Recorded Confirmed No Known Home Med 07/12/18 07/12/18 Review of Systems - Physician Review All systems were reviewed & negative as marked: Yes - Review of Systems Constitutional: Normal. absent: Fevers Eyes: Normal ENT: Normal Respiratory: Normal. absent: SOB, Cough Cardiovascular: Normal. absent: Chest Pain Gastrointestinal: Abdominal Pain, Nausea. absent: Diarrhea Genitourinary Male: Normal. absent: Dysuria, Frequency, Hematuria, Urinary Output Changes Musculoskeletal: Normal. absent: Back Pain, Neck Pain Skin: Normal. absent: Rash Neurological: Normal. absent: Headache, Dizziness Endocrine: Normal Hemo/Lymphatic: Normal Psychiatric: Normal Physical Exam Vital Signs Reviewed: Yes Vital Signs Temp Pulse Resp BP Pulse Ox 07/13/18 23:44 98.4 F 69 20 136/77 99 Temperature: Afebrile Blood Pressure: Normal Pulse: Regular Respiratory Rate: Normal Appearance: Positive for: Well-Appearing, Non-Toxic, Comfortable Pain Distress: None Mental Status: Positive for: Alert and Oriented X 3 - Systems Exam Head: Present: Atraumatic, Normocephalic Pupils: Present: PERRL Extroacular Muscles: Present: EOMI Conjunctiva: Present: Normal Mouth: Present: Moist Mucous Membranes Neck: Present: Normal Range of Motion Respiratory/Chest: Present: Clear to Auscultation, Good Air Exchange. No: Respiratory Distress, Accessory Muscle Use Cardiovascular: Present: Regular Rate and Rhythm, Normal S1, S2. No: Murmurs Abdomen: No: Tenderness, Distention, Peritoneal Signs Back: Present: Normal Inspection Upper Extremity: Present: Normal Inspection. No: Cyanosis, Edema Lower Extremity: Present: Normal Inspection. No: Edema Neurological: Present: GCS=15, CN II-XII Intact, Speech Normal Skin: Present: Warm, Dry, Normal Color. No: Rashes Psychiatric: Present: Alert, Oriented x 3, Normal Insight, Normal Concentration Medical Decision Making ED Course and Treatment: 07/13/18 23:49 Impression: 57 year old male complaining of upper abdominal pain and vomiting. Plan: -- Flagyl -- Rocephine -- IV fluids -- Reassess and disposition Prior Visits: Notes and results from previous visits were reviewed. On 07/12/2018, pt was seen in the Emergency department for RUQ pain and admitted to the hospital for cholecystitis/cholelithiasis. Pt signed out against AMA earlier today. Progress Notes: 07/13/18 23:[address] Urena, who is aware and agrees with plan. Accepts pt in to his service. Requests Dr. Benito and Dr. Singer on consult. Pt will be admitted to [facility] for cholecystitis and cholelithiasis. - Scribe Statement The provider has reviewed the documentation as recorded by the Scribe Cheri Croft Provider Scribe Attestation: All medical record entries made by the Scribe were at my direction and personally dictated by me. I have reviewed the chart and agree that the record accurately reflects my personal performance of the history, physical exam, medical decision making, and the department course for this patient. I have also personally directed, reviewed, and agree with the discharge instructions and disposition. Disposition/Present on Arrival - Present on Arrival Any Indicators Present on Arrival: No History of DVT/PE: No History of Uncontrolled Diabetes: No Urinary Catheter: No History Surgical Site Infection Following: None - Disposition Have Diagnosis and Disposition been Completed?: Yes Diagnosis: Cholelithiasis, Cholecystitis Disposition: HOSPITALIZED Disposition Time: 00:09 Patient Plan: Admission Condition: STABLE
[2018-07-14] MEDS ORDERED: Sodium Chloride 0.9% 1,000 ML IV STA (00:06)
[2018-07-14] MEDS: metroNIDAZOLE IV 500 mg/100 ml 500 MG/100 ML BAG IVPB SCH ×4 (00:33→22:30)
--- NOTE | 2018-07-14 06:55 | CP.PCM.CON ---
<Magdi Perdomo - Last Filed: 07/14/18 07:56> History of Present Illness - History of Present Illness History of Present Illness: Surgery Consult note- Dr. Benito Reason for consult: Cholecystitis 57M w/ no significant PMHx presents to [facility] ED with repeat RUQ pain after leaving AMA earlier yesterday. Initially presented w/ nausea and upper abdominal pain that started Saturday Morning. His last meal was [place] take out last night. Admits to associated nausea and 1 episode of non-bloody, non-bilious vomiting. Had pain similar to this in the past about 2 weeks ago. Surgery was consulted for evaluation of possible acute cholecystitis. During encounter patient is asymptomatic, with no abdominal pain resting comfortably. Patient states pain is worse with deep breaths. Initial ED workup: US shows cholelithiasis 12 point ROS conducted, negative otherwise stated above PMH: Denies PSH: b/l inguinal hernia repair (about 10 years ago, does not remember), circumcision in adulthood ALL: NKDA SocialHx: Denies tobacco, etoh, recreational drug use FH: non-contributory Review of Systems - Review of Systems All systems: reviewed and no additional remarkable complaints except - Constitutional Constitutional: As Per HPI Past Patient History - Infectious Disease Hx of Infectious Diseases: None - Past Social History Smoking Status: Never Smoked - CARDIAC Hx Cardiac Disorders: No - PULMONARY Hx Respiratory Disorders: No - NEUROLOGICAL Hx Neurological Disorder: No - HEENT Hx HEENT Problems: No - RENAL Hx Chronic Kidney Disease: No - ENDOCRINE/METABOLIC Hx Endocrine Disorders: No (pt's mother was diabetic) - HEMATOLOGICAL/ONCOLOGICAL Hx Blood Disorders: No - INTEGUMENTARY Hx Dermatological Problems: No - MUSCULOSKELETAL/RHEUMATOLOGICAL Hx Falls: No - GASTROINTESTINAL Hx Gastrointestinal Disorders: No - GENITOURINARY/GYNECOLOGICAL Hx Genitourinary Disorders: No - PSYCHIATRIC Hx Substance Use: No - SURGICAL HISTORY Hx Surgeries: Yes (B/L HERNIA,) - ANESTHESIA Hx Anesthesia: Yes Hx Anesthesia Reactions: No Hx Malignant Hyperthermia: No Meds Allergies/Adverse Reactions: Allergies Allergy/AdvReac Type Severity Reaction Status Date / Time codeine AdvReac RASH Verified 07/12/18 06:26 - Medications Medications: Current Medications Metronidazole (Flagyl) 500 mg in 100 mls @ 100 mls/hr IVPB Q8 YONI; Protocol Last Admin: 07/14/18 05:32 Dose: 100 mls/hr Ceftriaxone Sodium (Rocephin 1 Gram Ivpb) 1 gm in 100 mls @ 100 mls/hr IV DAILY YONI; Protocol Sodium Chloride (Sodium Chloride 0.9%) 1,000 mls @ 100 mls/hr IV .Q10H STA Stop: 07/14/18 10:05 Last Admin: 07/14/18 00:33 Dose: 100 mls/hr Physical Exam - Constitutional Appears: Non-toxic, No Acute Distress - Head Exam Head Exam: ATRAUMATIC - Eye Exam Eye Exam: EOMI. absent: Scleral icterus - ENT Exam ENT Exam: Mucous Membranes Moist - Respiratory Exam Respiratory Exam: NORMAL BREATHING PATTERN. absent: Accessory Muscle Use, Respiratory Distress - Cardiovascular Exam Cardiovascular Exam: +S1, +S2. absent: Bradycardia, Tachycardia - GI/Abdominal Exam GI & Abdominal Exam: Distended (normal distention), Soft, Tenderness. absent: Firm, Guarding, Rebound, Rigid Additional comments: Tenderness in RUQ to deep palpation - Extremities Exam Extremities exam: Positive for: normal inspection. Negative for: calf tenderness - Neurological Exam Neurological exam: Alert, Oriented x3 - Psychiatric Exam Psychiatric exam: Normal Affect - Skin Skin Exam: Intact, Warm Results - Vital Signs Recent Vital Signs: Last Vital Signs Temp 98.4 F 07/13/18 23:44 Pulse 69 07/13/18 23:44 Resp 18 07/14/18 01:40 BP 136/77 07/13/18 23:44 Pulse Ox 99 07/13/18 23:44 - Labs Result Diagrams: 07/14/18 07:30 Assessment & Plan - Assessment and Plan (Free Text) Assessment: 57M w/ Acute Cholecystitis Plan: - NPO - IVF - Pain control PRN - anti-emetic PRN - serial abd exams - plan for surgery during this hospital - further recs per Dr. Thong Perdomo PGY2 <Lance Benito - Last Filed: 07/14/18 11:24> Meds - Medications Medications: Current Medications Metronidazole (Flagyl) 500 mg in 100 mls @ 100 mls/hr IVPB Q8 YONI; Protocol Last Admin: 07/14/18 05:32 Dose: 100 mls/hr Ceftriaxone Sodium (Rocephin 1 Gram Ivpb) 1 gm in 100 mls @ 100 mls/hr IV DAILY YONI; Protocol Last Admin: 07/14/18 09:37 Dose: 100 mls/hr Lactated Ringer's (Lactated Ringer's) 1,000 mls @ 120 mls/hr IV .Q8H20M YONI Last Admin: 07/14/18 09:37 Dose: 120 mls/hr Morphine Sulfate (Morphine) 4 mg IVP Q4H PRN PRN Reason: Pain, moderate (4-7) Ondansetron HCl (Zofran Inj) 4 mg IVP Q4H PRN PRN Reason: Nausea/Vomiting Results - Vital Signs Recent Vital Signs: Last Vital Signs Temp 98.4 F 07/13/18 23:44 Pulse 69 07/13/18 23:44 Resp 18 07/14/18 01:40 BP 136/77 07/13/18 23:44 Pulse Ox 99 07/13/18 23:44 - Labs Result Diagrams: 07/14/18 07:30 07/14/18 07:30 Labs: Laboratory Results - last 24 hr 07/14/18 07/14/18 07/14/18 07:30 07:30 08:30 WBC 8.8 D RBC 4.97 Hgb 14.6 Hct 43.7 MCV 87.9 MCH 29.4 MCHC 33.4 RDW 13.5 Plt Count 383 MPV 9.1 Gran % 61.4 Lymph % (Auto) 24.2 Bollinger % (Auto) 13.2 H Eos % (Auto) 0.9 L Baso % (Auto) 0.3 Gran # 5.42 Lymph # (Auto) 2.1 Bollinger # (Auto) 1.2 H Eos # (Auto) 0.1 Baso # (Auto) 0.03 Sodium 139 Potassium 3.9 Chloride 104 Carbon Dioxide 28 Anion Gap 11 BUN 12 Creatinine 0.9 Est GFR ( Amer) > 60 Est GFR (Non-Af Amer) > 60 Random Glucose 94 Calcium 9.1 Phosphorus 3.3 Magnesium 2.1 Total Bilirubin 2.8 H AST 421 H D ALT 327 H Alkaline Phosphatase 200 H D Total Protein 7.7 Albumin 4.0 Globulin 3.7 Albumin/Globulin Ratio 1.1 Blood Type O POSITIVE Blood Type Confirm Antibody Screen Negative BBK History Checked No verified bt 07/14/18 09:30 WBC RBC Hgb Hct MCV MCH MCHC RDW Plt Count MPV Gran % Lymph % (Auto) Bollinger % (Auto) Eos % (Auto) Baso % (Auto) Gran # Lymph # (Auto) Bollinger # (Auto) Eos # (Auto) Baso # (Auto) Sodium Potassium Chloride Carbon Dioxide Anion Gap BUN Creatinine Est GFR ( Amer) Est GFR (Non-Af Amer) Random Glucose Calcium Phosphorus Magnesium Total Bilirubin AST ALT Alkaline Phosphatase Total Protein Albumin Globulin Albumin/Globulin Ratio Blood Type Blood Type Confirm O POSITIVE Antibody Screen BBK History Checked Assessment & Plan - Assessment and Plan (Free Text) Plan: Dx Probable NEW Common duct stone(ate last night despite liquids only instruction) MRCP ordered--?ERCP before surgery This consult done under my direct supervision Inessa Benito MD FACS
[2018-07-14 07:43] LABS: BASO # 0.03 K/mm3 (0.0-2.0); BASO % 0.3 % (0.0-3.0); EOS # 0.1 (0.0-0.7); EOS % 0.9 % (1.5-5.0); GRAN # 5.42 (1.4-6.5); GRAN % 61.4 % (50.0-68.0); HEMOGLOBIN 14.6 g/dL (14.0-18.0); LYMPH # 2.1 (1.2-3.4); LYMPH % 24.2 % (22.0-35.0); MEAN CELL VOLUME 87.9 fl (80.0-105.0); MEAN CORPUSCULAR HEMOGLOBIN 29.4 pg (25.0-35.0); MEAN CORPUSCULAR HGB CONC 33.4 g/dl (31.0-37.0); MEAN PLATELET VOLUME 9.1 fl (7.0-11.0); MONO # 1.2 (0.1-0.6); MONO % 13.2 % (1.0-6.0); RBC 4.97 10^6/uL (3.5-6.1); RED CELL DISTRIBUTION WIDTH 13.5 % (11.5-14.5); WHITE BLOOD COUNT 8.8 10^3/uL (4.5-11.0)
[2018-07-14] MEDS ORDERED: Morphine 4 mg/ml ISec IVP PRN (07:55)
[2018-07-14] MEDS ORDERED: Lactated Ringer's 1,000 ML IV SCH ×3 (08:00→14:54)
[2018-07-14 08:06] LABS: ALB/GLOB RATIO 1.1 (1.1-1.8); ALT/SGPT 327 U/L (7-56); AST/SGOT 421 U/L (17-59); BLOOD UREA NITROGEN 12 mg/dL (7-21); CALCIUM 9.1 mg/dL (8.4-10.5); GFR NON-AFRICAN AMERICAN > 60
--- NOTE | 2018-07-14 09:24 | CP.PCM.PCO ---
Physician Communication Note - Physician Communication Note Physician Communication Note: Now CD stone:Needs MRCP--?ERCP before surgery
[2018-07-14] MEDS: cefTRIAXone 1 gm 1 GM/100 ML BAG IV SCH (09:37)
--- NOTE | 2018-07-14 13:13 | CP.PCM.CON ---
<Weston Munoz - Last Filed: 07/14/18 15:27> History of Present Illness - History of Present Illness History of Present Illness: PGY6 GI Fellow Consult Note Patient is a 57yo male without significant past medical history who presented to the ED with abdominal pain. He was recently admitted and diagnosed with cholelithiasis/cholecystitis this past week and was scheduled for cholecystectomy but signed out against medical advice prior to having this performed. He returns now with recurrent RUQ and epigastric abdominal pain, nausea and vomiting. On lab work, LFTs are elevated in a mixed pattern and have worsened compared to prior blood work. Currently, the patient is comfortable and denies any significant pain, nausea or vomiting. He has been maintained NPO. Our service has been consulted for EUS/ERCP evaluation prior to cholecystectomy. 12 system ROS performed and negative except where stated PMHx: Discussed with patient and he denies PSHx: Inguinal hernia repair FHx: Discussed with patient and he denies significant family history Social: Denies tobacco, EtOH or illicit drug use Endo: No prior endoscopic evaluations Past Patient History - Infectious Disease Hx of Infectious Diseases: None - Past Social History Smoking Status: Never Smoked - CARDIAC Hx Cardiac Disorders: No - PULMONARY Hx Respiratory Disorders: No - NEUROLOGICAL Hx Neurological Disorder: No - HEENT Hx HEENT Problems: No - RENAL Hx Chronic Kidney Disease: No - ENDOCRINE/METABOLIC Hx Endocrine Disorders: No (pt's mother was diabetic) - HEMATOLOGICAL/ONCOLOGICAL Hx Blood Disorders: No - INTEGUMENTARY Hx Dermatological Problems: No - MUSCULOSKELETAL/RHEUMATOLOGICAL Hx Falls: No - GASTROINTESTINAL Hx Gastrointestinal Disorders: No - GENITOURINARY/GYNECOLOGICAL Hx Genitourinary Disorders: No - PSYCHIATRIC Hx Substance Use: No - SURGICAL HISTORY Hx Surgeries: Yes (B/L HERNIA,) - ANESTHESIA Hx Anesthesia: Yes Hx Anesthesia Reactions: No Hx Malignant Hyperthermia: No Meds Allergies/Adverse Reactions: Allergies Allergy/AdvReac Type Severity Reaction Status Date / Time codeine AdvReac RASH Verified 07/12/18 06:26 - Medications Medications: Current Medications Metronidazole (Flagyl) 500 mg in 100 mls @ 100 mls/hr IVPB Q8 YONI; Protocol Last Admin: 07/14/18 05:32 Dose: 100 mls/hr Ceftriaxone Sodium (Rocephin 1 Gram Ivpb) 1 gm in 100 mls @ 100 mls/hr IV DAILY YONI; Protocol Last Admin: 07/14/18 09:37 Dose: 100 mls/hr Lactated Ringer's (Lactated Ringer's) 1,000 mls @ 120 mls/hr IV .Q8H20M YONI Last Admin: 07/14/18 09:37 Dose: 120 mls/hr Morphine Sulfate (Morphine) 4 mg IVP Q4H PRN PRN Reason: Pain, moderate (4-7) Ondansetron HCl (Zofran Inj) 4 mg IVP Q4H PRN PRN Reason: Nausea/Vomiting Physical Exam - Constitutional Appears: Non-toxic, No Acute Distress - Eye Exam Eye Exam: EOMI, PERRL Additional comments: left eye with subconjunctival hemorrhage at the medial portion - ENT Exam ENT Exam: Mucous Membranes Moist - Respiratory Exam Respiratory Exam: Clear to Auscultation Bilateral. absent: Rales, Rhonchi, Wheezes - Cardiovascular Exam Cardiovascular Exam: RRR, +S1, +S2 - GI/Abdominal Exam GI & Abdominal Exam: Normal Bowel Sounds, Soft. absent: Distended, Firm, Guarding, Organomegaly, Rigid, Tenderness - Extremities Exam Extremities exam: Positive for: normal inspection. Negative for: pedal edema - Neurological Exam Neurological exam: Alert, Oriented x3 - Psychiatric Exam Psychiatric exam: Normal Affect, Normal Mood - Skin Skin Exam: Dry, Warm Results - Vital Signs Recent Vital Signs: Last Vital Signs Temp 98.4 F 07/13/18 23:44 Pulse 69 07/13/18 23:44 Resp 18 07/14/18 01:40 BP 136/77 07/13/18 23:44 Pulse Ox 99 07/13/18 23:44 - Labs Result Diagrams: 07/14/18 07:30 07/14/18 07:30 Labs: Laboratory Results - last 24 hr 07/14/18 07/14/18 07/14/18 07:30 07:30 08:30 WBC 8.8 D RBC 4.97 Hgb 14.6 Hct 43.7 MCV 87.9 MCH 29.4 MCHC 33.4 RDW 13.5 Plt Count 383 MPV 9.1 Gran % 61.4 Lymph % (Auto) 24.2 Cobb % (Auto) 13.2 H Eos % (Auto) 0.9 L Baso % (Auto) 0.3 Gran # 5.42 Lymph # (Auto) 2.1 Cobb # (Auto) 1.2 H Eos # (Auto) 0.1 Baso # (Auto) 0.03 Sodium 139 Potassium 3.9 Chloride 104 Carbon Dioxide 28 Anion Gap 11 BUN 12 Creatinine 0.9 Est GFR ( Amer) > 60 Est GFR (Non-Af Amer) > 60 Random Glucose 94 Calcium 9.1 Phosphorus 3.3 Magnesium 2.1 Total Bilirubin 2.8 H AST 421 H D ALT 327 H Alkaline Phosphatase 200 H D Total Protein 7.7 Albumin 4.0 Globulin 3.7 Albumin/Globulin Ratio 1.1 Blood Type O POSITIVE Blood Type Confirm Antibody Screen Negative BBK History Checked No verified bt 07/14/18 09:30 WBC RBC Hgb Hct MCV MCH MCHC RDW Plt Count MPV Gran % Lymph % (Auto) Cobb % (Auto) Eos % (Auto) Baso % (Auto) Gran # Lymph # (Auto) Cobb # (Auto) Eos # (Auto) Baso # (Auto) Sodium Potassium Chloride Carbon Dioxide Anion Gap BUN Creatinine Est GFR ( Amer) Est GFR (Non-Af Amer) Random Glucose Calcium Phosphorus Magnesium Total Bilirubin AST ALT Alkaline Phosphatase Total Protein Albumin Globulin Albumin/Globulin Ratio Blood Type Blood Type Confirm O POSITIVE Antibody Screen BBK History Checked Assessment & Plan - Assessment and Plan (Free Text) Assessment: Patient is a 57yo male without significant past medical history who presented to the ED with abdominal pain -Cholelithiasis -Cholecystitis -Abnormal LFTs - R/O Choledocolithiasis Plan: -MRCP pending official read - no obvious biliary tree stone noted on my evaluation -LFT elevation in mixed picture suggestive of recent or ongoing biliary obstruction given clinical history -Will perform EUS +/- ERCP today -Cholecystectomy per surgical service -Maintain NPO - Date & Time Date: 07/14/18 Time: 12:45 <Patrick Ford V - Last Filed: 07/14/18 23:57> Meds - Medications Medications: Current Medications Hydromorphone HCl (Dilaudid) 0.5 mg IVP Q15M PRN PRN Reason: Pain, Moderate/Severe (4-10) Metronidazole (Flagyl) 500 mg in 100 mls @ 100 mls/hr IVPB Q8 YONI; Protocol Last Admin: 07/14/18 22:30 Dose: 100 mls/hr Ceftriaxone Sodium (Rocephin 1 Gram Ivpb) 1 gm in 100 mls @ 100 mls/hr IV DAILY YONI; Protocol Last Admin: 07/14/18 09:37 Dose: 100 mls/hr Lactated Ringer's (Lactated Ringer's) 1,000 mls @ 125 mls/hr IV .Q8H YONI Last Admin: 07/14/18 23:42 Dose: Not Given Morphine Sulfate (Morphine) 4 mg IVP Q4H PRN PRN Reason: Pain, moderate (4-7) Ondansetron HCl (Zofran Inj) 4 mg IVP Q4H PRN PRN Reason: Nausea/Vomiting Results - Vital Signs Recent Vital Signs: Last Vital Signs Temp 98.8 F 07/14/18 20:30 Pulse 74 07/14/18 20:30 Resp 18 07/14/18 20:30 BP 140/71 07/14/18 20:30 Pulse Ox 99 07/14/18 20:30 - Labs Result Diagrams: 07/14/18 07:30 07/14/18 07:30 Labs: Laboratory Results - last 24 hr 07/14/18 07/14/18 07/14/18 07:30 07:30 08:30 WBC 8.8 D RBC 4.97 Hgb 14.6 Hct 43.7 MCV 87.9 MCH 29.4 MCHC 33.4 RDW 13.5 Plt Count 383 MPV 9.1 Gran % 61.4 Lymph % (Auto) 24.2 Cobb % (Auto) 13.2 H Eos % (Auto) 0.9 L Baso % (Auto) 0.3 Gran # 5.42 Lymph # (Auto) 2.1 Cobb # (Auto) 1.2 H Eos # (Auto) 0.1 Baso # (Auto) 0.03 Sodium 139 Potassium 3.9 Chloride 104 Carbon Dioxide 28 Anion Gap 11 BUN 12 Creatinine 0.9 Est GFR ( Amer) > 60 Est GFR (Non-Af Amer) > 60 Random Glucose 94 Calcium 9.1 Phosphorus 3.3 Magnesium 2.1 Total Bilirubin 2.8 H AST 421 H D ALT 327 H Alkaline Phosphatase 200 H D Total Protein 7.7 Albumin 4.0 Globulin 3.7 Albumin/Globulin Ratio 1.1 Blood Type O POSITIVE Blood Type Confirm Antibody Screen Negative BBK History Checked No verified bt 07/14/18 09:30 WBC RBC Hgb Hct MCV MCH MCHC RDW Plt Count MPV Gran % Lymph % (Auto) Cobb % (Auto) Eos % (Auto) Baso % (Auto) Gran # Lymph # (Auto) Cobb # (Auto) Eos # (Auto) Baso # (Auto) Sodium Potassium Chloride Carbon Dioxide Anion Gap BUN Creatinine Est GFR ( Amer) Est GFR (Non-Af Amer) Random Glucose Calcium Phosphorus Magnesium Total Bilirubin AST ALT Alkaline Phosphatase Total Protein Albumin Globulin Albumin/Globulin Ratio Blood Type Blood Type Confirm O POSITIVE Antibody Screen BBK History Checked Attending/Attestation - Attestation I have personally seen and examined this patient.: Yes I have fully participated in the care of the patient.: Yes I have reviewed all pertinent clinical information: Yes Notes (Text): p 07/14/18 23:57
[2018-07-14] MEDS ORDERED: Iohexol 240 (50 ml) ONE (13:36)
[2018-07-14] MEDS ORDERED: Indomethacin 50 MG Suppository PR ONE ×2 (13:37→18:06)
--- NOTE | 2018-07-14 13:37 | CP.PCM.PCO ---
Physician Communication Note - Physician Communication Note Physician Communication Note: ERCP Today/ERCP Today-OR Saturday?
--- NOTE | 2018-07-14 14:49 | MRI ---
Date of service: 07/14/2018 PROCEDURE: Magnetic Resonance Cholangiopancreatography HISTORY: COMPARISON: None available. TECHNIQUE: Multiplanar, multisequence MR images of the abdomen were obtained, including heavily T2 weighted MRCP images of the biliary system. Rotating maximum intensity projection images of the biliary system were generated. FINDINGS: MRCP: The common bile duct is of a normal caliber. No evidence of choledocholithiasis. No intrahepatic biliary ductal dilatation. LIVER: Unremarkable. GALLBLADDER: Multiple gallstones with gallbladder wall thickening or pericholecystic fluid. Findings suspicious for acute cholecystitis. No evidence of biliary dilatation or choledocholithiasis. SPLEEN: Unremarkable. PANCREAS: Unremarkable. ADRENALS: Unremarkable. KIDNEYS: Unremarkable. AORTA: No aneurysm. ASCITES: None. OTHER FINDINGS: None. IMPRESSION: Multiple gallstones with gallbladder wall thickening or pericholecystic fluid. Findings suspicious for acute cholecystitis. No evidence of biliary dilatation or choledocholithiasis.
[2018-07-14] MEDS ORDERED: Propofol 10 mg/ml Inj (20 ML) ONE (17:12)
[2018-07-14] MEDS ORDERED: Midazolam 2 MG/2 ML VIAL ONE (17:12)
--- NOTE | 2018-07-14 17:51 | CON ---
DATE: 07/14/2018 GASTROENTEROLOGY CONSULTATION REQUESTING PHYSICIAN: Dr. Urena. REASON FOR CONSULTATION: I have been asked to see this 57-year-old male, who was admitted to the hospital 2 days ago for epigastric and right upper quadrant pain. Workup in the hospital revealed gallstones, gallbladder wall thickening, and mild pericholecystic fluid. HIDA scan was positive for cystic duct obstruction. The patient signed out against medical advice yesterday afternoon. He subsequently developed abdominal pain associated with nausea and vomiting after eating [place] food. Routine blood work now shows elevated liver enzymes. His liver enzymes on previous admission were normal. MRCP was performed and showed normal CBD without any definite evidence of common bile duct stone. PAST MEDICAL HISTORY: Notable for gallstones. PAST SURGICAL HISTORY: Notable for bilateral inguinal hernia repair. SOCIAL HISTORY: Denies cigarette smoking or alcohol use. FAMILY HISTORY: Noncontributory. REVIEW OF SYSTEMS: Fourteen-point review of systems is notable for epigastric pain and nausea, vomiting. PHYSICAL EXAMINATION: GENERAL: Well-developed male, lying in bed, in no acute distress. VITAL SIGNS: Reveal a temperature of 98.4, blood pressure 136/77, heart rate of 69. HEENT: Reveal sclerae to be white. Conjunctivae pink. NECK: Supple. CHEST: Lungs are clear. HEART: Exam reveals a regular rate and rhythm. ABDOMEN: Soft, mild epigastric tenderness. No rebound or guarding. EXTREMITIES: Show no edema. LABORATORY DATA: Revealed a white blood cell count of 8.8, hemoglobin 14.6, platelet count 383,000. Chemistries reveal normal electrolytes. Total bilirubin 2.8, AST 421, ALT 327, alkaline phosphatase of 200. IMPRESSION: This is a 57-year-old male with acute cholecystitis, who signed out against medical advice, did not follow a diet. Recommendations for clear liquid diet and a [place] food, and again developed abdominal pain. He now has elevated liver enzymes, one must rule out a common bile duct stone. RECOMMENDATIONS: I have spoken to Dr. Ford about doing an EUS, possible ERCP to rule out common bile duct stone. Iker Singer MD [facility] # [id number]
[2018-07-14] MEDS ORDERED: ePHEDrine 50 mg/ml Inj ONE (18:04)
[2018-07-14] MEDS ORDERED: Phenylephrine 10 mg/ml Inj ONE (18:06)
[2018-07-14] MEDS ORDERED: Glucagon Recombinant 1 mg Inj ONE (18:17)
[2018-07-14] MEDS ORDERED: Lidocaine PF 2% (5 ml) Inj (For Cardiac Arrhy) ONE (19:41)
[2018-07-14] MEDS ORDERED: HYDROmorphone 0.5 mg/0.5 ml ISec IVP PRN (19:53)
[2018-07-14] MEDS ORDERED: Sodium Chloride 0.9% 1,000 ML IV SCH (20:00)
--- NOTE | 2018-07-14 20:18 | HP ---
DATE OF EXAM: 07/14/2018 CHIEF COMPLAIN T AND HISTORY OF PRESENT ILLNESS: This is a 57-year-old male who is coming into the hospital, complaining of right upper quadrant pain. The patient had come in 2 days ago and was having abdominal pain. He was found to have gallstones. He had improvement of the following day and decided to leave AMA. The patient had pain again and so he came in for further evaluation. He has no complaints of any chest pain or shortness of breath. He does feel better this morning. He is scheduled to possibly go to the OR later today. He has no complaints of any nausea. He did have nausea when he came into the hospital and he states that he has no fevers or chills, the nausea started 10 o'clock last night. He has no diarrhea. No dysuria or frequency. No back pain. No fevers or chills. REVIEW OF SYMPTOMS: All other review of symptoms are within normal limits except as mentioned. ALLERGIES: CODEINE. SOCIAL HISTORY: He does not smoke, drink, or use drugs. MEDICATIONS: He does not take any medications. PAST MEDICAL HISTORY: No significant past medical history. FAMILY HISTORY: Noncontributory. PHYSICAL EXAMINATION: VITAL SIGNS: He has a temperature of 98.4, pulse of 69, blood pressure 136/77, respirations 20, and O2 saturation is 99%. GENERAL: The patient is lying in bed, comfortable, and in no acute distress. HEENT: Atraumatic and normocephalic. Anicteric sclerae. Moist mucosa. [place] conjunctivae. No oral lesions. NECK: No JVD, anterior and posterior adenopathy, thyromegaly, or bruits. CARDIOVASCULAR: S1 and S2 regular. No murmurs, rubs or gallops. LUNGS: Clear to auscultation bilaterally. No wheezes, rales, or rhonchi. ABDOMEN: Bowel sounds are positive. Soft, nontender and nondistended. No hepatosplenomegaly. No rebound and no guarding. EXTREMITIES: No cyanosis, clubbing, or edema. NEUROLOGIC: No facial asymmetry. Tongue is midline. No uvula deviation. Power is 5/5 upper extremities and lower extremities. Sensation intact in upper extremities and lower extremities. PSYCHIATRIC: He is awake, alert and oriented x3. No anxiety or depression. He has normal affect. GENITOURINARY: No CVA tenderness. VASCULAR: 2+ pulses in the carotid pulses and pedal pulses. SKIN: No erythema or nodules SPINE: Shows normal curvature. LABORATORY DATA: Reviewed. White count of 8.8 and hemoglobin 14.6. Sodium is 139 and potassium is 3.9. AST is 421, ALT is 327, and alkaline phosphatase is 200. His AST was 38 yesterday and his ALT was 37 yesterday. He also has an alkaline phosphatase that was 95 yesterday. He had a gallbladder ultrasound done yesterday that showed gallbladder wall thickening. There is pericholecystic edema. He had a HIDA scan done that showed suggestive of obstruction of cystic duct and accordingly the patient has cholecystitis. Chest x-ray done shows no acute infiltrates. EKG shows sinus rhythm at 71. No ST-T changes, QTc is 434. ASSESSMENT: Cholecystitis. PLAN: The patient admitted to the hospital with cholecystis. He has a positive HIDA scan. He is seen by Dr. Benito and Dr. Singer. The patient will probably need an ERCP. The patient is going to be consult with Dr. Ford for endoscopic ultrasound. The patient was given IV fluids. He is going to be on lactated Ringer's. We will decrease the lactated Ringer's to 75 an hour. The patient has no pain currently. He is on Zofran as needed. He is on morphine as needed. He is on Flagyl and Rocephin. The patient is currently n.p.o. Elder Urena MD
[2018-07-15] MEDS: metroNIDAZOLE IV 500 mg/100 ml 500 MG/100 ML BAG IVPB SCH ×2 (05:37→21:33)
[2018-07-15 07:15] LABS: BASO # 0.02 K/mm3 (0.0-2.0); BASO % 0.2 % (0.0-3.0); EOS # 0.1 (0.0-0.7); EOS % 0.5 % (1.5-5.0); GRAN # 7.02 (1.4-6.5); GRAN % 69.5 % (50.0-68.0); HEMOGLOBIN 13.5 g/dL (14.0-18.0); LYMPH # 1.7 (1.2-3.4); LYMPH % 16.5 % (22.0-35.0); MEAN CELL VOLUME 87.3 fl (80.0-105.0); MEAN CORPUSCULAR HEMOGLOBIN 29.2 pg (25.0-35.0); MEAN CORPUSCULAR HGB CONC 33.4 g/dl (31.0-37.0); MEAN PLATELET VOLUME 9.5 fl (7.0-11.0); MONO # 1.3 (0.1-0.6); MONO % 13.3 % (1.0-6.0); RBC 4.63 10^6/uL (3.5-6.1); RED CELL DISTRIBUTION WIDTH 13.5 % (11.5-14.5); WHITE BLOOD COUNT 10.1 10^3/uL (4.5-11.0)
[2018-07-15 07:22] LABS: INR 1.3
[2018-07-15 07:43] LABS: ALBUMIN 3.3 g/dL (3.0-4.8); ALT/SGPT 247 U/L (7-56); AMYLASE 45 U/L (35-125); AST/SGOT 205 U/L (17-59); BLOOD UREA NITROGEN 15 mg/dL (7-21); CALCIUM 8.2 mg/dL (8.4-10.5); GFR NON-AFRICAN AMERICAN > 60; LIPASE 112 U/L (23-300)
--- NOTE | 2018-07-15 09:53 | RAD ---
Date of service: 07/15/2018 HISTORY: OR COMPARISON: 11/01/2013 FINDINGS: LUNGS: No active pulmonary disease. PLEURA: No significant pleural effusion identified, no pneumothorax apparent. CARDIOVASCULAR: No aortic atherosclerotic calcification present. Normal cardiac size. No pulmonary vascular congestion. OSSEOUS STRUCTURES: No significant abnormalities. VISUALIZED UPPER ABDOMEN: Normal. OTHER FINDINGS: None. IMPRESSION: No active disease.
[2018-07-15] MEDS: cefTRIAXone 1 gm 1 GM/100 ML BAG IV SCH (10:11)
[2018-07-15] MEDS ORDERED: Succinylcholine 200 mg/10 ml Inj IV ONE (11:07)
[2018-07-15] MEDS ORDERED: Propofol 10 mg/ml Inj (20 ML) ONE (11:07)
[2018-07-15] MEDS ORDERED: Iohexol 240 (50 ml) ONE (11:21)
[2018-07-15] MEDS ORDERED: Midazolam 2 MG/2 ML VIAL ONE (11:25)
--- NOTE | 2018-07-15 11:36 | CP.PCM.PN ---
<Weston Munoz - Last Filed: 07/15/18 11:32> Subjective - Date & Time of Evaluation Date of Evaluation: 07/15/18 Time of Evaluation: 08:30 - Subjective Subjective: PGY6 GI Fellow Progress Note Patient seen and examined bedside this morning. The patient is awaiting surgery for cholecystectomy. No events overnight. Abdominal pain resolved. 12 system ROS performed and negative except where stated Objective - Vital Signs/Intake and Output Vital Signs (last 24 hours): Temp Pulse Resp BP Pulse Ox 97 F L 70 20 149/82 96 07/15/18 08:46 07/15/18 08:46 07/15/18 08:46 07/15/18 08:46 07/15/18 08:46 Intake and Output: 07/15/18 07/15/18 06:59 18:59 Intake Total 900 Balance 900 - Medications Medications: Current Medications Hydromorphone HCl (Dilaudid) 0.5 mg IVP Q15M PRN PRN Reason: Pain, Moderate/Severe (4-10) Metronidazole (Flagyl) 500 mg in 100 mls @ 100 mls/hr IVPB Q8 YONI; Protocol Last Admin: 07/15/18 05:37 Dose: 100 mls/hr Ceftriaxone Sodium (Rocephin 1 Gram Ivpb) 1 gm in 100 mls @ 100 mls/hr IV DAILY YONI; Protocol Last Admin: 07/15/18 10:11 Dose: 100 mls/hr Lactated Ringer's (Lactated Ringer's) 1,000 mls @ 125 mls/hr IV .Q8H YONI Last Admin: 07/14/18 23:42 Dose: Not Given Morphine Sulfate (Morphine) 4 mg IVP Q4H PRN PRN Reason: Pain, moderate (4-7) Ondansetron HCl (Zofran Inj) 4 mg IVP Q4H PRN PRN Reason: Nausea/Vomiting - Labs Labs: 07/15/18 06:30 07/15/18 06:30 PT 15.0 SECONDS (9.4-12.5) H 07/15/18 06:30 INR 1.30 07/15/18 06:30 APTT 30.0 Seconds (25.1-36.5) 07/15/18 06:30 - Constitutional Appears: Non-toxic, No Acute Distress - Eye Exam Eye Exam: EOMI, PERRL - ENT Exam ENT Exam: Mucous Membranes Moist - Respiratory Exam Respiratory Exam: Clear to Ausculation Bilateral. absent: Rales, Rhonchi, Wheezes - Cardiovascular Exam Cardiovascular Exam: RRR, +S1, +S2 - GI/Abdominal Exam GI & Abdominal Exam: Soft, Normal Bowel Sounds. absent: Distended, Firm, Guarding, Rigid, Tenderness, Organomegaly - Extremities Exam Extremities Exam: Normal Inspection. absent: Pedal Edema - Neurological Exam Neurological Exam: Alert, Awake, Oriented x3 - Psychiatric Exam Psychiatric exam: Normal Affect, Normal Mood - Skin Skin Exam: Dry, Warm Assessment and Plan - Assessment and Plan (Free Text) Assessment: Patient is a 57yo male without significant past medical history who presented to the ED with abdominal pain -Choledocolithiasis -Acute cholecystitis -Abnormal LFTs 2/2 above Plan: -S/P EGD/EUS/ERCP with choledocolithiasis noted on exam; CBD stent placed -Patient to have cholecystectomy today with Dr Benito -Will follow up in a few weeks for stent removal -T bili may lag behind normalization of other LFTs -No further recommendations at this time -Post-op care per surgical service <Patrick Ford V - Last Filed: 07/15/18 15:53> Objective - Vital Signs/Intake and Output Vital Signs (last 24 hours): Temp Pulse Resp BP Pulse Ox 98.6 F 105 H 12 134/67 97 07/15/18 15:25 07/15/18 15:25 07/15/18 15:25 07/15/18 15:25 07/15/18 15:25 Intake and Output: 07/15/18 07/15/18 06:59 18:59 Intake Total 900 Balance 900 - Medications Medications: Current Medications Hydromorphone HCl (Dilaudid) 0.5 mg IVP Q15M PRN PRN Reason: Pain, Moderate/Severe (4-10) Stop: 07/15/18 15:47 Metronidazole (Flagyl) 500 mg in 100 mls @ 100 mls/hr IVPB Q8 YONI; Protocol Last Admin: 07/15/18 05:37 Dose: 100 mls/hr Ceftriaxone Sodium (Rocephin 1 Gram Ivpb) 1 gm in 100 mls @ 100 mls/hr IV DAILY YONI; Protocol Last Admin: 07/15/18 10:11 Dose: 100 mls/hr Lactated Ringer's (Lactated Ringer's) 1,000 mls @ 75 mls/hr IV .[id number] YONI Stop: 07/15/18 17:31 Morphine Sulfate (Morphine) 4 mg IVP Q4H PRN PRN Reason: Pain, severe (8-10) Ondansetron HCl (Zofran Inj) 4 mg IVP Q4H PRN PRN Reason: Nausea/Vomiting Ondansetron HCl (Zofran Inj) 4 mg IVP ONCE PRN PRN Reason: Nausea/Vomiting Stop: 07/15/18 23:59 - Labs Labs: 07/15/18 06:30 07/15/18 06:30 PT 15.0 SECONDS (9.4-12.5) H 07/15/18 06:30 INR 1.30 07/15/18 06:30 APTT 30.0 Seconds (25.1-36.5) 07/15/18 06:30 Attending/Attestation - Attestation I have personally seen and examined this patient.: Yes I have fully participated in the care of the patient.: Yes I have reviewed all pertinent clinical information, including history, physical exam and plan: Yes Notes (Text): This is an addendum to GI progress report dictated by the GI Fellow. The patient was seen and examined earlier. Medical records, lab studies, imagings were reviewed. Last 24 hours events reviewed. Agreed with the above treatment plan as outlined in GI Fellow 's notes with the addition of the following Transaminases downward trend. Total bili lags behind. Would consider early ERCP if LFT continues to show upward trend. Plan for lap hillary. 07/15/18 15:47
[2018-07-15] MEDS ORDERED: Rocuronium 10 mg/ml (5 ml) ONE ×2 (11:42→12:44)
[2018-07-15] MEDS ORDERED: Phenylephrine 10 mg/ml Inj ONE (11:43)
[2018-07-15] MEDS ORDERED: Desflurane Inhalation Anesthetic Liq (240 ml) ONE ×2 (11:52→14:40)
[2018-07-15] MEDS ORDERED: ePHEDrine 50 mg/ml Inj ONE (11:52)
[2018-07-15] MEDS ORDERED: Esmolol 100 mg/10ml Inj IV ONE ×2 (12:09→14:01)
[2018-07-15] MEDS ORDERED: Neostigmine Methylsulfate 3mg/3ml Syringe IV ONE (12:21)
[2018-07-15] MEDS: Bupivacaine 0.5% 50 ML IJ ONE ×2 (13:13→15:00)
[2018-07-15] MEDS ORDERED: HYDROmorphone 0.5 mg/0.5 ml ISec IVP PRN ×2 (13:47→15:17)
[2018-07-15] MEDS ORDERED: Lactated Ringer's 1,000 ML IV SCH ×2 (14:00→15:30)
[2018-07-15] MEDS ORDERED: Morphine 4 mg/ml ISec IVP PRN (15:20)
--- NOTE | 2018-07-15 15:25 | PCM.SURG1 ---
Surgeon's Initial Post Op Note - Surgeon's Notes Surgeon: Dr. Benito Prime Broker: Beronica Dominguez, PGY2; Magdi Perdomo PGY2 Type of Anesthesia: General Endo Anesthesia Administered By: Dr. Escobar and Dr. Muse Pre-Operative Diagnosis: Acute cholecystitis, choledocholithiasis Operative Findings: inflammed gallbladder with fibrinous tissue adhered, intraoperative cholangiogram demonstrated normal biliary tree anatomy, no obstruction or filling defects evident Post-Operative Diagnosis: acute cholecystitis Operation Performed: laparoscopic cholecystectomy with intraoperative cholangiogram Specimen/Specimens Removed: gallbladder Estimated Blood Loss: EBL {In ML}: 200 Blood Products Given: N/A Drains Used: Nicholas Post-Op Condition: Fair Date of Surgery/Procedure: 07/15/18 Time of Surgery/Procedure: 11:45
[2018-07-15 16:26] LABS: HEMOGLOBIN 13.2 g/dL (14.0-18.0); MEAN CELL VOLUME 87.4 fl (80.0-105.0); MEAN CORPUSCULAR HEMOGLOBIN 29.1 pg (25.0-35.0); MEAN CORPUSCULAR HGB CONC 33.2 g/dl (31.0-37.0); MEAN PLATELET VOLUME 9.3 fl (7.0-11.0); RBC 4.54 10^6/uL (3.5-6.1); RED CELL DISTRIBUTION WIDTH 13.5 % (11.5-14.5); WHITE BLOOD COUNT 10.9 10^3/uL (4.5-11.0)
[2018-07-15] MEDS ORDERED: Sodium Chloride 0.9% 1,000 ML IV SCH (19:15)
--- NOTE | 2018-07-15 22:20 | PN ---
DATE: 07/15/2018 SUBJECTIVE: The patient has no complaints of any chest pain, shortness of breath, headaches, or dizziness. No nausea. No vomiting. PHYSICAL EXAMINATION: VITAL SIGNS: Temperature is 98.6, pulse of 97, blood pressure is 130/68, and respirations 12. GENERAL: The patient is lying in bed, flat, comfortable. HEENT: No oral lesion. Anicteric sclerae. Moist mucosa. NECK: No JVD, adenopathy, or thyromegaly. CARDIOVASCULAR: S1 and S2, regular. No murmurs, rubs, or gallops. LUNGS: Clear to auscultation bilaterally. No wheeze, rales, or rhonchi. ABDOMEN: Bowel sounds are positive, soft, nontender and nondistended. EXTREMITIES: no cyanosis, clubbing or edema. LABS: White count of 10.9, hemoglobin 13.3, creatinine 1. ASSESSMENT: 1. Choledocholithiasis, status post common bile duct stent placement postop day #1. 2. Status post esophagogastroduodenoscopy/endoscopic ultrasound/endoscopic retrograde cholangio-pancreatography. 3. Acute cholecystitis. PLAN: The patient currently feels well. He had EUS done yesterday. He had about 200 mL of blood loss from the surgery that he had done today. He had a laparoscopic cholecystectomy done with an intraop cholangiogram. The patient had inflamed gallbladder with fibrous tissue that was adhered. The patient did have elevated LFTs and they started to downtrend. The patient's AST is 205, ALT is 247, which has improved from yesterday. His pain is controlled. He is currently on Flagyl. He is getting morphine for pain. He is on Rocephin for antibiotics. The patient is currently n.p.o. He will get repeat blood work tomorrow. Elder Urena MD
[2018-07-16] MEDS: metroNIDAZOLE IV 500 mg/100 ml 500 MG/100 ML BAG IVPB SCH ×3 (05:29→21:42)
[2018-07-16 07:11] LABS: BASO # 0.01 K/mm3 (0.0-2.0); BASO % 0.1 % (0.0-3.0); EOS % 0.1 % (1.5-5.0); GRAN # 9.76 (1.4-6.5); GRAN % 78.2 % (50.0-68.0); HEMOGLOBIN 13.1 g/dL (14.0-18.0); LYMPH # 1.5 (1.2-3.4); MEAN CELL VOLUME 88.1 fl (80.0-105.0); MEAN CORPUSCULAR HEMOGLOBIN 29.3 pg (25.0-35.0); MEAN CORPUSCULAR HGB CONC 33.2 g/dl (31.0-37.0); MEAN PLATELET VOLUME 9.5 fl (7.0-11.0); MONO # 1.2 (0.1-0.6); MONO % 9.6 % (1.0-6.0); RBC 4.47 10^6/uL (3.5-6.1); RED CELL DISTRIBUTION WIDTH 13.6 % (11.5-14.5); WHITE BLOOD COUNT 12.5 10^3/uL (4.5-11.0)
[2018-07-16 07:16] LABS: ALBUMIN 3.4 g/dL (3.0-4.8); ALT/SGPT 266 U/L (7-56); AST/SGOT 221 U/L (17-59); BLOOD UREA NITROGEN 15 mg/dL (7-21); CALCIUM 8.8 mg/dL (8.4-10.5); GFR NON-AFRICAN AMERICAN > 60
[2018-07-16] MEDS ORDERED: Oxycodone/Acetaminophen 5/325 mg Tab PO PRN (08:51)
--- NOTE | 2018-07-16 10:18 | RAD ---
Date of service: 07/14/2018 PROCEDURE: ERCP HISTORY: R/O OBSTRUCTION COMPARISON: TECHNIQUE: Fluoroscopy was provided in the endoscopy suite. 280.9 sec of fluoro time. Cumulative dose 38.34 mGy. 6 images submitted FINDINGS: The study shows placement of a stent in the common duct. IMPRESSION: As above
--- NOTE | 2018-07-16 10:20 | RAD ---
Date of service: 07/15/2018 PROCEDURE: Operative cholangiogram HISTORY: R/O OBSTRUCTION COMPARISON: TECHNIQUE: Fluoroscopy was provided in the operating room. Four images were submitted FINDINGS: Contrast flows from the common duct into the duodenum without obstruction. There are no filling defects. IMPRESSION: As above
--- NOTE | 2018-07-16 10:59 | CP.PCM.PN ---
<Weston Munoz - Last Filed: 07/16/18 10:56> Subjective - Date & Time of Evaluation Date of Evaluation: 07/16/18 Time of Evaluation: 08:20 - Subjective Subjective: PGY6 GI Fellow Progress Note Patient seen and examined bedside this morning. The patient states that he is feeling well today. No complaints or issues overnight. 12 system ROS performed and negative except where stated Objective - Vital Signs/Intake and Output Vital Signs (last 24 hours): Temp Pulse Resp BP Pulse Ox 98.4 F 67 20 148/80 97 07/16/18 06:00 07/16/18 06:00 07/16/18 06:00 07/16/18 06:00 07/16/18 06:00 Intake and Output: 07/16/18 07/16/18 06:59 18:59 Intake Total 950 Output Total 50 Balance 900 - Medications Medications: Current Medications Metronidazole (Flagyl) 500 mg in 100 mls @ 100 mls/hr IVPB Q8 YONI; Protocol Last Admin: 07/16/18 05:29 Dose: 100 mls/hr Ceftriaxone Sodium (Rocephin 1 Gram Ivpb) 1 gm in 100 mls @ 100 mls/hr IV DAILY YONI; Protocol Last Admin: 07/15/18 10:11 Dose: 100 mls/hr Morphine Sulfate (Morphine) 4 mg IVP Q4H PRN PRN Reason: Pain, severe (8-10) Ondansetron HCl (Zofran Inj) 4 mg IVP Q4H PRN PRN Reason: Nausea/Vomiting Oxycodone/Acetaminophen (Percocet 5/325 Mg Tab) 1 tab PO Q6H PRN PRN Reason: Pain, severe (8-10) Stop: 07/19/18 08:52 Ursodiol (Actigall) 300 mg PO BID YONI - Labs Labs: 07/16/18 06:00 07/16/18 06:00 PT 15.0 SECONDS (9.4-12.5) H 07/15/18 06:30 INR 1.30 07/15/18 06:30 APTT 30.0 Seconds (25.1-36.5) 07/15/18 06:30 - Constitutional Appears: Non-toxic, No Acute Distress - Eye Exam Eye Exam: EOMI, PERRL - ENT Exam ENT Exam: Mucous Membranes Moist - Respiratory Exam Respiratory Exam: Clear to Ausculation Bilateral. absent: Rales, Rhonchi, Wheezes - Cardiovascular Exam Cardiovascular Exam: RRR, +S1, +S2 - GI/Abdominal Exam GI & Abdominal Exam: Soft, Tenderness (minimal at surgical sites), Normal Bowel Sounds. absent: Distended, Firm, Guarding, Rigid, Organomegaly Additional comments: LYNDSAY drain in place - Extremities Exam Extremities Exam: Normal Inspection. absent: Pedal Edema - Neurological Exam Neurological Exam: Alert, Awake, Oriented x3 - Psychiatric Exam Psychiatric exam: Normal Affect, Normal Mood - Skin Skin Exam: Dry, Warm Assessment and Plan - Assessment and Plan (Free Text) Assessment: Patient is a 57yo male without significant past medical history who presented to the ED with abdominal pain -Choledocolithiasis -Acute cholecystitis -Abnormal LFTs 2/2 above Plan: -S/P cholecystectomy POD#1 -Patient will require repeat endoscopic evaluation for stent removal and balloon sweep of CBD -Start Actigall 300mg PO BID today -Follow up with Dr Ford as outpatient, information added to D/C paperwork -Post-op care per surgical service <Patrick Ford V - Last Filed: 07/16/18 22:10> Objective - Vital Signs/Intake and Output Vital Signs (last 24 hours): Temp Pulse Resp BP Pulse Ox 97.4 F L 75 20 166/96 H 96 07/16/18 16:48 07/16/18 16:48 07/16/18 16:48 07/16/18 16:48 07/16/18 16:48 Intake and Output: 07/16/18 07/17/18 18:59 06:59 Intake Total 925 Balance 925 - Medications Medications: Current Medications Metronidazole (Flagyl) 500 mg in 100 mls @ 100 mls/hr IVPB Q8 YONI; Protocol Last Admin: 07/16/18 21:42 Dose: 100 mls/hr Ceftriaxone Sodium (Rocephin 1 Gram Ivpb) 1 gm in 100 mls @ 100 mls/hr IV DAILY YONI; Protocol Last Admin: 07/16/18 11:08 Dose: 100 mls/hr Ondansetron HCl (Zofran Inj) 4 mg IVP Q4H PRN PRN Reason: Nausea/Vomiting Last Admin: 12/19/18 18:31 Dose: 4 mg Tramadol HCl (Ultram) 50 mg PO TID PRN PRN Reason: Pain, moderate (4-7) Last Admin: 07/16/18 17:03 Dose: 50 mg Ursodiol (Actigall) 300 mg PO BID YONI Last Admin: 07/16/18 17:03 Dose: 300 mg - Labs Labs: 07/16/18 06:00 07/16/18 06:00 PT 15.0 SECONDS (9.4-12.5) H 07/15/18 06:30 INR 1.30 07/15/18 06:30 APTT 30.0 Seconds (25.1-36.5) 07/15/18 06:30 Attending/Attestation - Attestation I have personally seen and examined this patient.: Yes I have fully participated in the care of the patient.: Yes I have reviewed all pertinent clinical information, including history, physical exam and plan: Yes Notes (Text): This is an addendum to GI progress report dictated by the GI Fellow. The patient was seen and examined earlier. Medical records, lab studies, imagings were reviewed. Last 24 hours events reviewed. Agreed with the above treatment plan as outlined in GI Fellow 's notes with the addition of the following patient was feeling better LFT shows downward trend. Would recommend Actigall Follow-up LFT Repeat ERCP for removal of the stone and stent in 3 weeks Explained to the patient at length regarding followup recommendations Patient fully understood 07/16/18 22:08
[2018-07-16] MEDS: cefTRIAXone 1 gm 1 GM/100 ML BAG IV SCH (11:08)
--- NOTE | 2018-07-16 11:33 | CP.PCM.PN ---
Subjective - Date & Time of Evaluation Date of Evaluation: 07/16/18 Time of Evaluation: 11:29 - Subjective Subjective: Surgery Progress note- Dr. Benito Patient seen and examined at bedside. had mild nausea post-operatively however resolved. Tolerating current diet, denies nausea, vomiting, fevers chills. abdominal pain improved with minimal tenderness around incision sites. Nicholas drain in place w/ 55cc serosang fluid. Objective - Vital Signs/Intake and Output Vital Signs (last 24 hours): Temp Pulse Resp BP Pulse Ox 98.4 F 67 20 148/80 97 07/16/18 06:00 07/16/18 06:00 07/16/18 06:00 07/16/18 06:00 07/16/18 06:00 Intake and Output: 07/16/18 07/16/18 06:59 18:59 Intake Total 950 Output Total 50 Balance 900 - Medications Medications: Current Medications Metronidazole (Flagyl) 500 mg in 100 mls @ 100 mls/hr IVPB Q8 YONI; Protocol Last Admin: 07/16/18 05:29 Dose: 100 mls/hr Ceftriaxone Sodium (Rocephin 1 Gram Ivpb) 1 gm in 100 mls @ 100 mls/hr IV DAILY YONI; Protocol Last Admin: 07/16/18 11:08 Dose: 100 mls/hr Morphine Sulfate (Morphine) 4 mg IVP Q4H PRN PRN Reason: Pain, severe (8-10) Ondansetron HCl (Zofran Inj) 4 mg IVP Q4H PRN PRN Reason: Nausea/Vomiting Ursodiol (Actigall) 300 mg PO BID YONI - Labs Labs: 07/16/18 06:00 07/16/18 06:00 PT 15.0 SECONDS (9.4-12.5) H 07/15/18 06:30 INR 1.30 07/15/18 06:30 APTT 30.0 Seconds (25.1-36.5) 07/15/18 06:30 - Constitutional Appears: Non-toxic, No Acute Distress - Eye Exam Eye Exam: EOMI. absent: Scleral icterus - ENT Exam ENT Exam: Mucous Membranes Moist - Respiratory Exam Respiratory Exam: NORMAL BREATHING PATTERN. absent: Accessory Muscle Use, Respiratory Distress - Cardiovascular Exam Cardiovascular Exam: +S1, +S2. absent: Bradycardia, Tachycardia - GI/Abdominal Exam GI & Abdominal Exam: Soft, Tenderness (appropriately tender around incision). absent: Distended, Firm, Guarding, Rigid - Neurological Exam Neurological Exam: Alert, Awake, Oriented x3 - Skin Skin Exam: Intact, Warm Assessment and Plan - Assessment and Plan (Free Text) Assessment: 57M s/p laparoscopic cholecystectomy POD1 Plan: - diet as tolerated - monitor labs - strict I/O - monitor drain output - pain control PRN - encourage ambulation and incentive spirometer use - further recs per Dr. Benito surgical attending PGY2
--- NOTE | 2018-07-16 13:09 | PN ---
DATE: 07/16/2018 SUBJECTIVE: The patient is lying in bed, comfortable. This is postop day #1 of laparoscopic cholecystectomy. He is 2 days post ERCP with sphincterotomy and biliary stent placement for small common bile duct stones. He is comfortable. He denies any nausea, vomiting. He has some expected pain at the laparoscopy sites. OBJECTIVE: VITAL SIGNS: Reveal temperature of 98.4, blood pressure 148/80, heart rate of 67. HEENT: Reveal sclerae to be white. Conjunctivae pink. NECK: Supple. CHEST: Reveal lungs to be clear. HEART: Reveals a regular rate and rhythm. ABDOMEN: Soft. He has multiple puncture wounds from his laparoscopy in his abdomen. He has a Nicholas drain draining serosanguineous fluid from the right side of the abdomen. LABORATORY DATA: Reveal white blood cell count 12.5, hemoglobin 13.1. Chemistries reveal total bilirubin is down to 1.8, AST 221, ALT 266 and alkaline phosphatase of 204. IMPRESSION: A 57-year-old male with acute cholecystitis and common bile duct stone status post endoscopic retrograde cholangiopancreatography, sphincterotomy, stent placement, laparoscopic cholecystectomy. His total bilirubin is trending downwards. Recommendations are continue postop care. Iker Singer MD
--- NOTE | 2018-07-16 13:25 | PN ---
DATE: 07/16/2018 SUBJECTIVE: The patient has no complaints of any chest pain, shortness of breath, headaches, or dizziness. He says is feeling better. PHYSICAL EXAMINATION: VITAL SIGNS: Temperature is 98.4, pulse of 67, blood pressure is 148/80, and respiration is 12. GENERAL: The patient is lying in bed, flat, comfortable. HEENT: No oral lesion. Anicteric sclerae. Moist mucosa. NECK: No JVD, adenopathy, or thyromegaly. CARDIOVASCULAR: S1 and S2, regular. No murmurs, rubs, or gallops. LUNGS: Clear to auscultation bilaterally. No wheeze, rales, or rhonchi. ABDOMEN: Bowel sounds are positive, soft, nontender and nondistended. EXTREMITIES: No cyanosis, clubbing or edema. LABORATORY DATA: White count of 12.5, hemoglobin 13.1. ASSESSMENT: 1. Acute cholecystitis, status post cholecystectomy. 2. Choledocholithiasis, status post common bile duct stent placement postop day #2. 3. Status post endoscopic ultrasound. PLAN: The patient is currently comfortable. He is on Flagyl. He is going to continue with morphine for pain. The patient is on Rocephin for antibiotics and intravenous fluids. I will discontinue the patient's intravenous fluids. We will wait for the info from surgery to find about the patient's discharge. The patient on a liquid diet. His pain is controlled. Elder Urena MD
[2018-07-16 16:48] VITALS: O2SAT 96
[2018-07-16] MEDS ORDERED: Morphine 2 mg/ml ISec IVP STA (19:02)
[2018-07-17] MEDS: metroNIDAZOLE IV 500 mg/100 ml 500 MG/100 ML BAG IVPB SCH (05:21)
--- NOTE | 2018-07-17 07:38 | CP.PCM.PN ---
Subjective - Date & Time of Evaluation Date of Evaluation: 07/17/18 Time of Evaluation: 07:00 - Subjective Subjective: Surgery progress note for Dr. Benito Pt seen and examined at bedside this AM. Pt had one episode of pain that required morphine overnight. States that he has been able to take a small amount of food, has been passing gas, urinating, but had one episode of pain not controlled with PO medications. Denies any nausea, vomiting, or fevers. Objective - Vital Signs/Intake and Output Vital Signs (last 24 hours): Temp Pulse Resp BP Pulse Ox 97.4 F L 75 20 166/96 H 96 07/16/18 16:48 07/16/18 16:48 07/16/18 16:48 07/16/18 16:48 07/16/18 16:48 Intake and Output: 07/17/18 07/17/18 06:59 18:59 Intake Total 200 Balance 200 - Medications Medications: Current Medications Metronidazole (Flagyl) 500 mg in 100 mls @ 100 mls/hr IVPB Q8 YONI; Protocol Last Admin: 07/17/18 05:21 Dose: 100 mls/hr Ceftriaxone Sodium (Rocephin 1 Gram Ivpb) 1 gm in 100 mls @ 100 mls/hr IV DAILY YONI; Protocol Last Admin: 07/16/18 11:08 Dose: 100 mls/hr Ondansetron HCl (Zofran Inj) 4 mg IVP Q4H PRN PRN Reason: Nausea/Vomiting Last Admin: 07/16/18 18:31 Dose: 4 mg Tramadol HCl (Ultram) 75 mg PO Q6H PRN PRN Reason: Pain, moderate (4-7) Ursodiol (Actigall) 300 mg PO BID YONI Last Admin: 07/16/18 17:03 Dose: 300 mg - Labs Labs: 07/16/18 06:00 07/16/18 06:00 PT 15.0 SECONDS (9.4-12.5) H 07/15/18 06:30 INR 1.30 07/15/18 06:30 APTT 30.0 Seconds (25.1-36.5) 07/15/18 06:30 - Constitutional Appears: Well, Non-toxic, No Acute Distress - Head Exam Head Exam: ATRAUMATIC, NORMOCEPHALIC - Eye Exam Eye Exam: Normal appearance. absent: Conjunctival injection, Scleral icterus - ENT Exam ENT Exam: Mucous Membranes Moist, Normal Oropharynx - Respiratory Exam Respiratory Exam: NORMAL BREATHING PATTERN. absent: Accessory Muscle Use, Respiratory Distress - Cardiovascular Exam Cardiovascular Exam: RRR - GI/Abdominal Exam GI & Abdominal Exam: Soft, Tenderness (RUQ and juan david-incisional). absent: Distended Additional comments: dressings C/D/I. no srrounding erythema or bleeding - Extremities Exam Extremities Exam: absent: Calf Tenderness, Joint Swelling, Pedal Edema - Neurological Exam Neurological Exam: Alert, Awake, Oriented x3 - Psychiatric Exam Psychiatric exam: Normal Affect, Normal Mood - Skin Skin Exam: Dry, Normal Color, Warm Assessment and Plan - Assessment and Plan (Free Text) Assessment: 57M POD#2 s/p laparoscopic cholecystectomy and IOC Plan: Patient is clear for discharge to home from a surgical standpoint with augmentin and instructions to follow up with DR. Benito in his office in 1-2 weeks Patient clear for d/c from a surgical standpoint with PO pain medication, augmentin, and follow up appointment with Dr. Benito in 1-2 weeks Post operative instructions in the discharge plan Discussed with Dr. Benito, who agrees with above Beronica Dominguez, PGY2
[2018-07-17 08:01] VITALS: BP 153/87; PULSE 74; RESP 19; TEMP 98.3
[2018-07-17 09:14] LABS: BASO # 0.01 K/mm3 (0.0-2.0); BASO % 0.1 % (0.0-3.0); EOS # 0.1 (0.0-0.7); EOS % 0.9 % (1.5-5.0); GRAN # 7.97 (1.4-6.5); GRAN % 74.1 % (50.0-68.0); HEMOGLOBIN 13.7 g/dL (14.0-18.0); LYMPH # 1.8 (1.2-3.4); LYMPH % 16.8 % (22.0-35.0); MEAN CELL VOLUME 88.7 fl (80.0-105.0); MEAN CORPUSCULAR HEMOGLOBIN 29.7 pg (25.0-35.0); MEAN CORPUSCULAR HGB CONC 33.4 g/dl (31.0-37.0); MEAN PLATELET VOLUME 9.3 fl (7.0-11.0); MONO # 0.9 (0.1-0.6); MONO % 8.1 % (1.0-6.0); RBC 4.62 10^6/uL (3.5-6.1); RED CELL DISTRIBUTION WIDTH 13.6 % (11.5-14.5); WHITE BLOOD COUNT 10.8 10^3/uL (4.5-11.0)
[2018-07-17] MEDS: cefTRIAXone 1 gm 1 GM/100 ML BAG IV SCH (09:19)
[2018-07-17 09:27] LABS: ALB/GLOB RATIO 1.1 (1.1-1.8); ALBUMIN 3.7 g/dL (3.0-4.8); ALT/SGPT 260 U/L (7-56); AST/SGOT 183 U/L (17-59); BLOOD UREA NITROGEN 12 mg/dL (7-21); CALCIUM 8.8 mg/dL (8.4-10.5); GFR NON-AFRICAN AMERICAN > 60
--- NOTE | 2018-07-17 11:24 | CP.PCM.PCO ---
Physician Communication Note - Physician Communication Note Physician Communication Note: discharge-office f/u
--- NOTE | 2018-07-17 11:40 | PN ---
DATE: 07/17/2018 SUBJECTIVE The patient is lying in bed. He is tolerating solid foods. He denies any abdominal pain, jaundice or dark urine. He denies fevers or chills. OBJECTIVE: VITAL SIGNS: Reveal temperature of 98.3, blood pressure 153/87, heart rate 74. HEENT: Reveal sclerae to be white. Conjunctivae pink. NECK: Supple. CHEST: Lungs are clear. HEART: Reveals regular rate and rhythm. ABDOMEN: Soft. There are multiple laparoscopic puncture sites that are clean and without drainage. His Nicholas drain has been removed. EXTREMITIES: Show no edema. LABORATORY DATA: Reveal white blood cell count 10.8, hemoglobin 13.7. Chemistries reveal total bilirubin 1.2, AST down to 183, ALT down to 260, alkaline phosphatase down to 193. IMPRESSION: 1. Acute cholecystitis. 2. Elevated liver enzymes with hyperbilirubinemia with multiple small common bile duct stones and sludge status post ERCP, sphincterotomy and stent placement. RECOMMENDATIONS: The patient is stable from a GI standpoint. He is to follow up with Dr. Ford for removal of his biliary stent and balloon clearance of his common bile duct. Iker Singer MD
--- NOTE | 2018-07-17 15:47 | DS ---
HISTORY OF PRESENT ILLNESS: This is a 57-year-old male, who came to the hospital with abdominal pain. He was found to have acute cholecystitis. The patient was also having choledocholithiasis. He had a stent that was placed in his gallbladder. The patient then had a cholecystectomy. He feels well. He is going to be following up with GI and Surgery. He is tolerating his diet. He has no complaints of any chest pain or shortness of breath. No headaches. He is able to ambulate. PHYSICAL EXAMINATION: VITAL SIGNS: Temperature is 98.3, pulse is 74, blood pressure 153/87 and respirations 19. GENERAL: The patient is lying in bed, flat, comfortable. HEENT: No oral lesion. Anicteric sclerae. Moist mucosa. NECK: No JVD, adenopathy, or thyromegaly. CARDIOVASCULAR: S1 and S2, regular. No murmurs, rubs, or gallops. LUNGS: Clear to auscultation bilaterally. No wheeze, rales, or rhonchi. ABDOMEN: Bowel sounds are positive, soft, nontender and nondistended. EXTREMITIES: No cyanosis, clubbing or edema. LABORATORY DATA: White count is 12.5 and hemoglobin 13.1. Creatinine is 1.0. ASSESSMENT: 1. Acute cholecystitis, status post cholecystectomy. 2. Choledocholithiasis status post common bile duct stent placement, postop day #1. 3. Status post endoscopic ultrasound. PLAN: 1. The patient is currently comfortable. He is on Actigall. He is going to continue with his Rocephin for his antibiotics. He is on tramadol for his pain. He is receiving Zofran as needed. The patient is on Flagyl. He is on heart healthy diet. The patient has repeat blood work, that has been ordered, results are pending. We will wait for Surgery to see if the patient is cleared for possible discharge. He is advised to followup with Dr. Benito in 1-2 weeks. 2. Follow[address] Dr. Ford for stent removal in 2-3 weeks. Condition is stable. tolerated. Elder Urena MD [facility] # [id number]
--- NOTE | 2018-07-23 21:59 | OP ---
PROCEDURE DATE: 07/15/2018 SURGEON Lance Benito MD. PERSONAL COMPANION: Beronica Dominguez DO, PGY-2. SECOND PERSONAL COMPANION: Magdi Perdomo DO, PGY-2. ANESTHESIA: Aleks Escobar MD - General - Marcaine 0.5-20 mL. PREOPERATIVE DIAGNOSES: Acute cholecystitis - choledocholithiasis. POSTOPERATIVE DIAGNOSES: Acute cholecystitis - choledocholithiasis. PROCEDURES: 1. Laparoscopic cholecystectomy. 2. Lysis of extensive adhesions. 3. Intraoperative cholangiogram. OPERATIVE INDICATIONS: The patient is a 57-year-old -[place] male with a recent attack of acute cholecystitis complicated by his signing out from the hospital AMA and returning within 5 hours having passed stones into his common duct. Shortly after his admission, he underwent ERCP with sphincterotomy and placement of a stent. The patient improved rapidly and is now recommended for completion laparoscopic cholecystectomy. Risks, benefits, alternatives and their anticipated outcomes were all discussed with the patient and with his and the patient signs the informed consent. OPERATIVE NOTE: The patient is brought to the operating room, identified by his wrist band, undergoes time-out procedure and is then placed on the table in a supine manner and undergoes the induction of general anesthesia and the insertion of an endotracheal tube. Sequential compression devices were placed on his lower extremities. The abdomen is electrically clipped, prepped with Hibiclens chlorhexidine preparation and the patient is then aseptically draped. The umbilicus is elevated on towel clips, infiltrated with bupivacaine at all port sites. Incision made and a Veress needle inserted into the peritoneal cavity and the abdomen insufflated with carbon dioxide gas to 14 mmHg pressure. The needle was removed, replaced with an 11-mm port and the abdomen explored using the operating laparoscope. Under direct vision, three 5-mm ports were placed, 2 on the level of the umbilicus in the lateral positions and 1 in the subxiphoid position. The table was now placed in a reverse Trendelenburg position and rotated slightly to the left. Adhesions to the gallbladder are stripped and attempts to aspirate the gallbladder were made and the gallbladder was so full of stone that minimal fluid could be removed. Using Prestige clamps at the apex end of the fundus, the zia hepatis is dissected free in immediate proximity to the gallbladder, the cystic duct is identified and extremely extensive adhesions on the lower part of the gallbladder and acute inflammation to the gallbladder require more meticulous dissection and care. The junction of the cystic duct with the gallbladder is doubly hemoclipped, incised below and the intraoperative cholangiogram performed demonstrating the anatomy confirming the visual field and the anatomy was seen through the camera. Free flow of contrast exits the common duct and several lucencies are seen in the common duct still demonstrating presence which will be removed on an interval basis after recovery. The distal end of the cystic duct opening is doubly hemoclipped, transected and the cystic artery is now identified, isolated and it too is doubly hemoclipped and transected. The gallbladder is now removed from the liver bed in a prograde fashion utilizing electrocoagulating current for hemostatic control and to prevent any biliary leak. Once the gallbladder is completely freed, it is placed in an EndoCatch, brought out through the umbilical incision which had to be slightly enlarged to allow for the stone-filled gallbladder to pass the abdominal wall and skin. The port is replaced. The patient is placed level supine. The area is now lavaged with multi liters of normal saline solution and hemostasis is confirmed. EndoAvitene is placed in the portal space against the liver bed and a 15-Wolof Nicholas drain is placed through the lateral port into the hepatorenal space of Simmons and secured to the skin with 2-0 Surgidac polyester suture. The gallbladder is now cultured aerobically and anaerobically and submitted in formalin to the Pathology Department and the midline port is closed with interrupted 2-0 Polysorb sutures under direct vision and further infiltration employed with bupivacaine. The skin incisions are now closed with 4-0 Biosyn and Dermabond adhesive and a dry dressing is now applied. The patient is now awakened, extubated, and transported to the recovery room in a satisfactory condition. Sponge, instrument and suture count were verified as correct at the end of the procedure. Estimated blood loss during this procedure was less than 100 mL of blood. The surgical assistants were present throughout from beginning to end and were extremely valuable in performing and assisting in the dissection that was much more difficult than usual due to the inflammation and adhesions. Lance Benito MD [facility] # [id number]
== END 2018-07-17 12:45 | disposition home or self-care (01) | DRG 419 ==
LOC: ED 23:12 → ERH 07-14 00:04 → 3RSO 07-14 00:45
PROVIDERS: ADMIT Internal Medicine Nephrology; ATTEND Internal Medicine Nephrology
PROC: 0DJ08ZZ Inspection of Upper Intestinal Tract, Via Natural or Artificial Opening Endoscopic (ICD-10-PCS; 2018-07-14)
PROC: 0FC98ZZ Extirpation of Matter from Common Bile Duct, Via Natural or Artificial Opening Endoscopic (ICD-10-PCS; 2018-07-14 16:00)
PROC: 0F798DZ Dilation of Common Bile Duct with Intraluminal Device, Via Natural or Artificial Opening Endoscopic (ICD-10-PCS; 2018-07-14 16:00)
PROC: BF131ZZ Fluoroscopy of Gallbladder and Bile Ducts using Low Osmolar Contrast (ICD-10-PCS; 2018-07-15)
PROC: 0FT44ZZ Resection of Gallbladder, Percutaneous Endoscopic Approach (ICD-10-PCS; principal; 2018-07-15 11:00)
DX: K80.66 Calculus of gallbladder and bile duct with acute and chronic cholecystitis without obstruction (principal); K44.9 Diaphragmatic hernia without obstruction or gangrene; K29.70 Gastritis, unspecified, without bleeding; K82.8 Other specified diseases of gallbladder

== ENCOUNTER → 2018-10-03 | Day surgery (SDC) | payer BC | LOC: ENDO 11:24 ==